=== PATIENT | female | born 1995 | race Caucasian/White ===

== ENCOUNTER 2016-10-21 14:51 | Emergency (ER) | payer OTHER ==
[2016-10-21 15:01] VITALS: BMI 23.8
[2016-10-21 15:03] VITALS: RESP 18; TEMP 99.1; O2SAT 98
[2016-10-21] MEDS ORDERED: Naproxen 550 mg Tab PO STA (16:02)
--- NOTE | 2016-10-21 16:29 | ED PDOC ---
Arrival/HPI - General Chief Complaint: Headache Time Seen by Provider: 10/21/16 15:06 Historian: Patient - History of Present Illness Narrative History of Present Illness (Text): 10/21/16 16:25 21 yo F c/o gradual intermittent stabbing like L occipital headache x 2 weeks. Reports nothing makes the pain better or worse and reports not taking any medications to alleviate the pain. Denies fever, chills, trauma, injury, N/V, URI symptoms, phonophobia, photophobia, h/o migraine headache, focal weakness or numbness. PMD Adolph Past Medical History - Provider Review Nursing Documentation Reviewed: Yes - Infectious Disease Hx of Infectious Diseases: None - Tetanus Immunization Tetanus Immunization: Unknown - Past Medical History Past Medical History: No Previous - Cardiac Hx Cardiac Disorders: No - Pulmonary Hx Respiratory Disorders: No - Neurological Hx Neurological Disorder: No - HEENT Hx HEENT Disorder: No - Renal Hx Renal Disorder: No - Endocrine/Metabolic Hx Endocrine Disorders: No - Hematological/Oncological Hx Blood Disorders: No - Integumentary Hx Dermatological Disorder: No - Musculoskeletal/Rheumatological Hx Musculoskeletal Disorders: No - Gastrointestinal Hx Gastrointestinal Disorders: No - Genitourinary/Gynecological Hx Genitourinary Disorders: Yes Other/Comment: right ovarian cyst - Psychiatric Hx Psychophysiologic Disorder: No Hx Substance Use: No - Past Surgical History Past Surgical History: No Previous - Surgical History Hx Section: Yes Hx Orthopedic Surgery: Yes (R wrist) - Anesthesia Hx Anesthesia: Yes Hx Anesthesia Reactions: No Hx Malignant Hyperthermia: No - Suicidal Assessment Feels Threatened In Home Enviroment: Yes Family/Social History - Physician Review Nursing Documentation Reviewed: Yes Family/Social History: No Known Family HX Smoking Status: Never Smoked Hx Alcohol Use: Yes Frequency of alcohol use: Socially Hx Substance Use: No Hx Substance Use Treatment: No Allergies/Home Meds Allergies/Adverse Reactions: Allergies No Known Allergies Allergy (Verified 01/08/14 17:02) Review of Systems - Review of Systems Constitutional: Normal. absent: Fatigue, Weight Change, Fevers Respiratory: Normal. absent: SOB, Cough, Sputum Cardiovascular: Normal. absent: Chest Pain, Palpitations, Edema Musculoskeletal: Normal. absent: Arthralgias, Back Pain, Neck Pain Skin: Normal. absent: Rash, Pruritis, Skin Lesions Neurological: Normal, Headache. absent: Dizziness, Focal Weakness Physical Exam Vital Signs Reviewed: Yes Vital Signs Temp Pulse Resp BP Pulse Ox 10/21/16 18:38 72 18 114/69 98 10/21/16 15:02 99.1 F 69 18 107/73 98 Temperature: Afebrile Blood Pressure: Normal Pulse: Regular Respiratory Rate: Normal Appearance: Positive for: Well-Appearing, Non-Toxic, Comfortable Pain Distress: None Mental Status: Positive for: Alert and Oriented X 3 - Systems Exam Head: Present: Atraumatic, Normocephalic Pupils: Present: PERRL Extroacular Muscles: Present: EOMI Conjunctiva: Present: Normal Mouth: Present: Moist Mucous Membranes Pharnyx: Present: Normal. No: ERYTHEMA Neck: Present: Normal Range of Motion. No: Meningeal Signs, MIDLINE TENDERNESS Respiratory/Chest: Present: Clear to Auscultation, Good Air Exchange. No: Respiratory Distress, Accessory Muscle Use, Wheezes, Rales, Rhonchi Cardiovascular: Present: Regular Rate and Rhythm, Normal S1, S2. No: Murmurs Upper Extremity: Present: Normal Inspection, Normal ROM. No: Edema Lower Extremity: Present: Normal Inspection, Normal ROM. No: Edema Neurological: Present: GCS=15, CN II-XII Intact, Speech Normal, Motor Func Grossly Intact, Normal Sensory Function, Normal Cerebellar Funct, Gait Normal Skin: Present: Warm, Dry, Normal Color. No: Rashes Psychiatric: Present: Alert, Oriented x 3 Medical Decision Making ED Course and Treatment: 10/21/16 16:29 21 yo F c/o gradual intermittent stabbing like L occipital headache x 2 weeks. Based on history and exam, likely migraine headache, to consider cluster and tension headache. Plan: - [facility] [place] - Naprosyn / Reglan - CT head w/o contrast 10/21/16 18:30 On re-evaluation, pt is sitting comfortably in bed in no acute distress. Reports improvement of her headache. CT head still pending, however the pt is refusing head CT at this time. Pt wants to leave AMA. Benefits of obtaining the CT were explained to the pt. Risk of refusing the CT were also explained. Pt informed that the risk of leaving AMA include missing any underlying condition, worsening of condition, disability and . Pt understands the risk of leaving AMA without the head CT and still wants to leave. Pt given Rx for her symptoms. Advised to f/u with her pmd for re- evaluation. Otherwise to return to the ER at any time for any new or worsening symptoms, or if she changes her mind. - Medication Orders Current Medication Orders: Discontinued Medications Metoclopramide HCl (Reglan) 10 mg PO STAT STA Stop: 10/21/16 16:03 Last Admin: 10/21/16 16:41 Dose: 10 mg Naproxen (Anaprox Ds) 550 mg PO ONCE STA Stop: 10/21/16 16:03 Last Admin: 10/21/16 16:41 Dose: 550 mg - PA / HOME BASED ASSISTANT / Resident Statement / has reviewed & agrees with the documentation as recorded. Disposition/Present on Arrival - Present on Arrival Any Indicators Present on Arrival: No History of DVT/PE: No History of Uncontrolled Diabetes: No Urinary Catheter: No History of Decub. Ulcer: No History Surgical Site Infection Following: None - Disposition Have Diagnosis and Disposition been Completed?: Yes Diagnosis: Headache Disposition: AGAINST MEDICAL ADVICE Disposition Time: 18:33 Patient Plan: Other (Pt is wishing to leave AMA) Condition: STABLE Discharge Instructions (ExitCare): Acute Headache (ED), Against Medical Advice (ED) Print Language: PORTUGUESE Additional Instructions: Follow up with your pmd in 2 days for re-evaluation. Take medication as prescribed. Return to the ER at any time for any new or worsening symptoms. Prescriptions: Metoclopramide HCl [Reglan] 10 mg PO QID PRN #20 tablet PRN Reason: Headache Naproxen 500 mg PO BID PRN #30 tab PRN Reason: Headache Referrals: Marialuisa Deras MD [Primary Care Provider] - Follow up with primary Forms: WORK NOTE
[2016-10-21 18:39] VITALS: BP 114/69; PULSE 72
== END 2016-10-21 18:44 | disposition left against medical advice (07) ==
LOC: ED 14:51
DX: R51 Headache (principal)

== ENCOUNTER 2018-01-28 21:05 | Inpatient (IN) | payer MEDICAID, OTHER ==
[2018-01-28] MEDS ORDERED: Sodium Chloride 0.9% 1,000 ML IV STA (21:34)
--- NOTE | 2018-01-28 21:39 | ED PDOC ---
Addendum entered and electronically signed by Jefe Tejada PA-C 01/30/18 11:34: Addendum Addendum: 01/30/18 11:33 Official chest xray show rt. upper lobe patchy pneumonia, Dr. Sheppard is seeing the patient and already awared of the result, broad spectrum treatment on azithromycin and rocephine Original Note: Arrival/HPI - General Historian: Patient, Parent, Family - History of Present Illness Narrative History of Present Illness (Text): 01/28/18 21:36 22 year old female no significant pmh,nkda, biba with the mother for syncope. Pt. stated that she pass out in the bathroom this evening. Pt. stated that she has been sick with high fever/bodyache/cough and headache x 2-3 days, no recent traveling, no abdominal pain, stated that she went to use the bathroom this evening and found her self on the bathroom ground, no neck/extremity/abdominal/pelvic pain, no night sweat, no change in vision, no numbness or tinging, no other medical or psychological complaints. <Jefe Tejada - Last Filed: 01/29/18 01:10> <Rk Zamudio - Last Filed: 01/29/18 06:24> - General Chief Complaint: Flu-like Symptoms Time Seen by Provider: 01/28/18 21:27 Past Medical History - Provider Review Nursing Documentation Reviewed: Yes - Infectious Disease Hx of Infectious Diseases: None - Tetanus Immunization Tetanus Immunization: Unknown - Past Medical History Past Medical History: No Previous - Cardiac Hx Cardiac Disorders: No - Pulmonary Hx Respiratory Disorders: No - Neurological Hx Neurological Disorder: No - HEENT Hx HEENT Disorder: No - Renal Hx Renal Disorder: No - Endocrine/Metabolic Hx Endocrine Disorders: No - Hematological/Oncological Hx Blood Disorders: No - Integumentary Hx Dermatological Disorder: No - Musculoskeletal/Rheumatological Hx Musculoskeletal Disorders: No - Gastrointestinal Hx Gastrointestinal Disorders: No - Genitourinary/Gynecological Hx Genitourinary Disorders: Yes Other/Comment: right ovarian cyst - Psychiatric Hx Psychophysiologic Disorder: No Hx Substance Use: No - Past Surgical History Past Surgical History: No Previous - Surgical History Hx Section: Yes Hx Orthopedic Surgery: Yes (R wrist) - Anesthesia Hx Anesthesia: Yes Hx Anesthesia Reactions: No Hx Malignant Hyperthermia: No - Suicidal Assessment Feels Threatened In Home Enviroment: Yes <Jefe eTjada Cassie - Last Filed: 01/29/18 01:10> Family/Social History - Physician Review Nursing Documentation Reviewed: Yes Family/Social History: Unknown Family HX Smoking Status: Never Smoked Hx Alcohol Use: Yes Hx Substance Use: No Hx Substance Use Treatment: No <Jefe Tejada Cassie - Last Filed: 01/29/18 01:10> Allergies/Home Meds <Jefe Tejada Cassie - Last Filed: 01/29/18 01:10> <Rk Zamudio - Last Filed: 01/29/18 06:24> Allergies/Adverse Reactions: Allergies No Known Allergies Allergy (Verified 01/28/18 21:15) Home Medications: Home Meds Medication Instructions Recorded Confirmed RX: No Known Home Med 01/28/18 01/28/18 Review of Systems - Review of Systems Constitutional: Fatigue, Fevers Eyes: absent: Vision Changes ENT: Rhinorrhea. absent: Hearing Changes Respiratory: Cough, Sputum. absent: SOB, Wheezing Cardiovascular: absent: Chest Pain, Palpitations Gastrointestinal: absent: Abdominal Pain, Diarrhea, Nausea, Vomiting Genitourinary Female: absent: Dysuria, Frequency, Vaginal Discharge Musculoskeletal: Myalgias. absent: Arthralgias, Neck Pain, Joint Swelling Skin: absent: Rash, Pruritis Neurological: Headache. absent: Dizziness Psychiatric: absent: Anxiety, Depression, Suicidal Ideation <Jefe Tejada - Last Filed: 01/29/18 01:10> Physical Exam Vital Signs Reviewed: Yes Vital Signs Temp Pulse Resp BP Pulse Ox 01/28/18 21:11 103.1 F H 117 H 18 124/80 98 Temperature: Febrile Blood Pressure: Normal Pulse: Tachycardic Respiratory Rate: Normal Appearance: Positive for: Ill-Appearing Pain Distress: Moderate Mental Status: Positive for: Alert and Oriented X 3 - Systems Exam Head: Present: Atraumatic, Normocephalic, Other (facial: no bony tenderness or swelling, no laceration/abrasion, no signs of trauma. ). No: Tenderness, Contusion, Swelling, Ecchymosis, Abrasion, Laceration Pupils: Present: PERRL Extroacular Muscles: Present: EOMI Conjunctiva: Present: Normal Ears: Present: NORMAL TM, Normal Canal Mouth: Present: Moist Mucous Membranes Pharnyx: Present: Normal. No: ERYTHEMA, EXUDATE, TONSILS ENLARGED Nose (External): Present: Atraumatic. No: Abrasion, Contusion, Laceration Nose (Internal): Present: Normal Inspection, No Active Bleeding. No: Rhinorrhea, Septal Hematoma, Epistaxis Neck: Present: Normal Range of Motion, Trachea Midline. No: Meningeal Signs, MIDLINE TENDERNESS, Paraspinal Tenderness, Lymphadenopathy Respiratory/Chest: Present: Decreased Breath Sounds, Rhonchi (bilateral), Tender to Palpation. No: Respiratory Distress, Accessory Muscle Use, Wheezes, Rales, Retracting, Tachypneic Cardiovascular: Present: Regular Rate and Rhythm, Normal S1, S2. No: Murmurs Abdomen: No: Tenderness, Distention, Peritoneal Signs, Rebound, Guarding Back: Present: Normal Inspection. No: CVA Tenderness, Midline Tenderness, Paraspinal Tenderness, Pain with Leg Raise, Decubitus Ulcer Upper Extremity: Present: Normal Inspection. No: Cyanosis, Edema Lower Extremity: Present: Normal Inspection, Normal ROM, Neurovascularly Intact, Capillary Refill < 2 s. No: Edema, CALF TENDERNESS, Tonya's Sign, Tenderness, Swelling, Deformity Neurological: Present: GCS=15, CN II-XII Intact, Speech Normal, Motor Func Grossly Intact, Normal Cerebellar Funct, Gait Normal, Memory Normal Skin: Present: Warm, Dry, Normal Color. No: Rashes Lymphatic: No: Cervical Adenopathy Psychiatric: Present: Alert, Oriented x 3, Normal Insight, Normal Concentration <Jefe Tejada - Last Filed: 01/29/18 01:10> Vital Signs Temp Pulse Resp BP Pulse Ox 01/28/18 23:40 99.8 F H 96 H 17 118/66 97 01/28/18 22:37 103.1 F H 01/28/18 21:11 103.1 F H 117 H 18 124/80 98 <Rk Zamudio - Last Filed: 01/29/18 06:24> Medical Decision Making ED Course and Treatment: 01/28/18 21:40 -labs/vbg -cxr -CT head -ekg -IVF/tylenol/toradol (if CT head is negative and urine hcg is negative) -Observe and reassess 01/29/18 00:58 -Urine hcg is negative -EKG: ST @ 103 BPM, no ST elevation or depression, no T wave inversion -CT head show essentially unremarkable CT scan of the brain. -Chest X-ray ER wet read: no active disease -Labs show no acute findings -Rapid flu is negative but clinical suspicious is high, tamiflu ordered. -MG is negative -Urinalysis show +UTI, IV rocephine ordered. 01/29/18 01:10 -Pt. doesn't feel well, still sick looking, negative kernig and brudzinski signs, discussed with the patient to observe her over night since she has syncope. Pt. agreed to be admitted. -Paging the admitting team. - RAD Interpretation Narrative RAD Interpretations (Text): CT Head: BRAIN Otherwise, essentially unremarkable CT scan of the brain. VENTRICLES: No hydrocephalus. ORBITS: The orbits are unremarkable. SINUSES AND MASTOIDS: The paranasal sinuses and mastoid air cells are clear. BONES: No fracture. SOFT TISSUES: Unremarkable. MISCELLANEOUS: Study is somewhat limited by motion artifact. IMPRESSION: 1. Study is somewhat limited by motion artifact. 2. Otherwise, essentially unremarkable CT scan of the brain. Electronically signed on Jan 28, 2018 11:51:01 PM EDT by: Cornelius Potts M.D., BERENICE Certified By ABR & CBCCT Fellowship Trained MRI and CT Specialist Radiology Orders: 01/28/18 21:34 HEAD W/O CONTRAST [CT] Stat CHEST TWO VIEWS (PA/LAT) [RAD] Stat CT Head: COMPARISON: Comparison is made to study performed November 22, 2014 FINDINGS: BRAIN Otherwise, essentially unremarkable CT scan of the brain. VENTRICLES: No hydrocephalus. ORBITS: The orbits are unremarkable. SINUSES AND MASTOIDS: The paranasal sinuses and mastoid air cells are clear. BONES: No fracture. SOFT TISSUES: Unremarkable. MISCELLANEOUS: Study is somewhat limited by motion artifact. IMPRESSION: 1. Study is somewhat limited by motion artifact. 2. Otherwise, essentially unremarkable CT scan of the brain. Electronically signed on Jan 28, 2018 11:51:01 PM EDT by: Cornelius Potts M.D., BERENICE Certified By ABR & CBCCT Fellowship Trained MRI and CT Specialist Chest xray: Corporate Logistics Manager: Radiologist - EKG Interpretation EKG Interpretation (Text): 01/29/18 00:55 ST @ 103 BPM, no ST elevation or depression, no T wave inversion Interpreted by ED Physician: Yes Type: 12 lead EKG - Medication Orders Current Medication Orders: Acetaminophen (Tylenol 325mg Tab) 650 mg PO STAT STA Stop: 01/28/18 21:35 Sodium Chloride (Sodium Chloride 0.9%) 1,000 mls @ 999 mls/hr IV .Q1H1M STA Stop: 01/28/18 22:34 Ketorolac Tromethamine (Toradol) 30 mg IVP STAT STA Stop: 01/28/18 21:35 <Jefe Tejada Q - Last Filed: 01/29/18 01:10> - Lab Interpretations Lab Results: 01/28/18 23:02 01/28/18 23:02 Lab Results 01/28/18 23:02: Urine Color Yellow, Urine Appearance Sl cloudy, Urine pH 6.5, Ur Specific [place] 1.015, Urine Protein Trace H, Urine Glucose (UA) Negative, Urine Ketones Negative, Urine Blood Large H, Urine Nitrate Negative, Urine Bilirubin Negative, Urine Urobilinogen 0.2, Ur Leukocyte Esterase Small H, Urine RBC 2 - 5, Urine WBC 5 - 10, Ur Epithelial Cells 6 - 8, Amorphous Sediment Few, Urine Bacteria Small 01/28/18 23:02: Sodium 138, Chloride 101, Potassium 3.9, Carbon Dioxide 26, Anion Gap 14, BUN 10, Creatinine 0.7, Est GFR ( Amer) > 60, Est GFR (Non- Af Amer) > 60, Random Glucose 107, Calcium 8.9, Magnesium 2.0, Total Bilirubin 0.4, AST 28, ALT 25, Alkaline Phosphatase 68, Total Protein 7.8, Albumin 4.3, Globulin 3.5, Albumin/Globulin Ratio 1.2 01/28/18 23:02: WBC 8.1, RBC 4.45, Hgb 13.1, Hct 38.2, MCV 85.8, MCH 29.4, MCHC 34.3, RDW 11.9, Plt Count 163, MPV 10.0, Gran % 67.7, Lymph % (Auto) 22.6, [place] % (Auto) 9.5 H, Eos % (Auto) 0.1 L, Baso % (Auto) 0.1, Gran # 5.46, Lymph # (Auto) 1.8, [place] # (Auto) 0.8 H, Eos # (Auto) 0.0, Baso # (Auto) 0.01 01/28/18 23:00: pO2 33, VBG pH 7.38, VBG pCO2 48.0, VBG HCO3 28.4 H, VBG Total CO2 29.9 H, VBG O2 Sat (Calc) 68.1 H, VBG Base Excess 2.5 H, VBG Potassium 3.9, Sodium 136.0, Chloride 101.0, Glucose 104, Lactate 0.8, FiO2 21.0, Venous Blood Potassium 3.9 01/28/18 21:15: Influenza Typ A,B (EIA) Negative for flu a/b - RAD Interpretation Radiology Orders: 01/28/18 21:34 HEAD W/O CONTRAST [CT] Stat CHEST TWO VIEWS (PA/LAT) [RAD] Stat - Medication Orders Current Medication Orders: Sodium Chloride (Sodium Chloride 0.9%) 1,000 mls @ 100 mls/hr IV .Q10H [place] Discontinued Medications Acetaminophen (Tylenol 325mg Tab) 650 mg PO STAT STA Stop: 01/28/18 21:35 Last Admin: 01/28/18 22:37 Dose: 650 mg MAR Pain/Vitals Document 01/28/18 22:37 OCS (Rec: 01/28/18 22:37 [facility] Vitals Temperature (97.6 F-99.6 F) 103.1 F Temperature Source Oral Sodium Chloride (Sodium Chloride 0.9%) 1,000 mls @ 999 mls/hr IV .Q1H1M STA Stop: 01/28/18 22:34 Last Admin: 01/28/18 22:36 Dose: 999 mls/hr eMAR Start Stop Document 01/28/18 22:36 OCS (Rec: 01/28/18 22:37 [facility] Intravenous Solution Start Date 01/28/18 Start Time 22:37 End Date 10/31/18 End time 23:38 Total Infusion Time 61 <Rk Zamudio - Last Filed: 01/29/18 06:24> - PA / AIR QUALITY SPECIALIST / Resident Statement AMANDA has reviewed & agrees with the documentation as recorded. <Jefe Tejada - Last Filed: 01/29/18 01:10> - PA / AIR QUALITY SPECIALIST / Resident Statement AMANDA has reviewed & agrees with the documentation as recorded. AMANDA has examined the patient and agrees with the treatment plan. <Rk Zamudio - Last Filed: 01/29/18 06:24> Disposition/Present on Arrival - Present on Arrival Any Indicators Present on Arrival: No History of DVT/PE: No History of Uncontrolled Diabetes: No Urinary Catheter: No History of Decub. Ulcer: No History Surgical Site Infection Following: None - Disposition Have Diagnosis and Disposition been Completed?: Yes Disposition Time: 01:11 Patient Plan: Admission, Observation, Telemetry <Jefe Tejada - Last Filed: 01/29/18 01:10> <Rk Zamudio - Last Filed: 01/29/18 06:24> - Disposition Diagnosis: UTI (urinary tract infection), Syncope Disposition: HOSPITALIZED Patient Problems: Current Active Problems Problem Status Onset Syncope Acute UTI (urinary tract infection) Acute Condition: STABLE
[2018-01-28 23:05] LABS: VENOUS BLOOD GAS BASE EXCESS 2.5 mmol/L (0.0-2.0); VENOUS BLOOD GAS PO2 33 mm/Hg (30-55); VENOUS BLOOD PH 7.38 (7.32-7.43)
[2018-01-28 23:19] LABS: ALB/GLOB RATIO 1.2 (1.1-1.8); ALBUMIN 4.3 g/dL (3.0-4.8); ALT/SGPT 25 U/L (7-56); AST/SGOT 28 U/L (14-36); BLOOD UREA NITROGEN 10 mg/dL (7-21); CALCIUM 8.9 mg/dL (8.4-10.5); GFR NON-AFRICAN AMERICAN > 60
[2018-01-28 23:20] LABS: BASO # 0.01 K/mm3 (0.0-2.0); BASO % 0.1 % (0.0-3.0); EOS % 0.1 % (1.5-5.0); GRAN # 5.46 (1.4-6.5); GRAN % 67.7 % (50.0-68.0); HEMOGLOBIN 13.1 g/dL (12.0-16.0); LYMPH # 1.8 (1.2-3.4); LYMPH % 22.6 % (22.0-35.0); MEAN CELL VOLUME 85.8 fl (80.0-105.0); MEAN CORPUSCULAR HEMOGLOBIN 29.4 pg (25.0-35.0); MEAN CORPUSCULAR HGB CONC 34.3 g/dl (31.0-37.0); MONO # 0.8 (0.1-0.6); MONO % 9.5 % (1.0-6.0); RBC 4.45 10^6/uL (3.5-6.1); RED CELL DISTRIBUTION WIDTH 11.9 % (11.5-14.5); WHITE BLOOD COUNT 8.1 10^3/uL (4.5-11.0)
[2018-01-28 23:21] LABS: PH,URINE 6.5 (4.7-8.0); URINE BILIRUBIN NEGATIVE (NEGATIVE); URINE BLOOD LARGE (NEGATIVE); URINE GLUCOSE (UA) NEGATIVE (NEGATIVE); URINE LEUKOCYTE ESTERASE SMALL Leu/uL (NEGATIVE); URINE PROTEIN TRACE mg/dL (<30 mg/dL); URINE UROBILINOGEN 0.2 E.U./dL (<1 E.U./dL)
[2018-01-28 23:22] LABS: URINE APPEARANCE SL CLOUDY (CLEAR); URINE COLOR YELLOW (YELLOW)
[2018-01-28 23:49] LABS: URINE AMORPHOUS SEDIMENT FEW; URINE BACTERIA SMALL (NEG)
[2018-01-29] MEDS: Sodium Chloride 0.9% 1,000 ML IV SCH (00:47)
[2018-01-29] MEDS ORDERED: cefTRIAXone 1 gm 1 GM/100 ML BAG IVPB STA (00:54)
--- NOTE | 2018-01-29 05:46 | CP.PCM.HP ---
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 Patient reported that over the past 2-3 days she has been having general malaise, fever, cough, body aches n/v w/ 2 episodes NBNB vomitus, and decreased PO intake. She denies any sick contact, or recent travel. Patient does report decreased PO intake w/ Of note patient reported chronic L sided shoulder pain w/ chronic L sided neck pain. Denies any headache, visual disturbances, photophobia. She did report that she passed out prior to arrival. Reported feeling light headed and dizzy prior to passing out; lost consciousness for what she reports as minutes; unwitnessed; reports she was unconscious for "less than a few minutes"; Denies any trauma to her head. Denies any seizure like symptoms. Denies UTI / Dysuria / Burning upon urination or discharge. Upon presentation to ED her TMax was 103.1. Remainder of 12 system ROS is negative FDLMP: now PMD: [place] PMH: None PSH: CSection; Wrist surgery (ortho) Pharmacy [facility] Present on Admission - Present on Admission Any Indicators Present on Admission: No Review of Systems - Review of Systems All systems: reviewed and no additional remarkable complaints except Review of Systems: as per HPI Past Patient History - Infectious Disease Hx of Infectious Diseases: None - Tetanus Immunizations Tetanus Immunization: Unknown - Past Social History Smoking Status: Never Smoked - CARDIAC Hx Cardiac Disorders: No Hx Angina: No Hx Cardia Arrhythmia: No Hx Circulatory Problems: No Hx Congestive Heart Failure: No Hx Heart Murmur: No Hx Heart Transplant: No Hx Hypercholesterolemia: No Hx Hypertension: No Hx Internal Defibrillator: No Hx Mitral Valve Prolapse: No Hx Pacemaker: No Hx Peripheral Edema: No Hx Peripheral Vascular Disease: No - PULMONARY Hx Respiratory Disorders: No Hx Asthma: No Hx Bronchitis: No Hx Chronic Obstructive Pulmonary Disease (COPD): No Hx Emphysema: No Hx Pneumonia: No Hx Respiratory Aspiration: No Hx Respiratory Tract Infection: No Hx Sleep Apnea: No Hx Tuberculosis: No - NEUROLOGICAL Hx Neurological Disorder: No Hx Alzheimer's Disease: No HX Cerebrovascular Accident: No Hx Dementia: No Hx Dizziness: No Hx Meningitis: No Hx Migraine: No Hx Parkinson's Disease: No Hx Seizures: No Hx Transient Ischemic Attacks (TIA): No - HEENT Hx HEENT Problems: No Hx Blind: No Hx Cataracts: No Hx Deafness: No Hx Difficulty Chewing: No Hx Epistaxis: No Hx Glaucoma: No Hx Macular Degeneration: No - RENAL Hx Chronic Kidney Disease: No Hx Dialysis: No Hx Kidney Stones: No Hx Neurogenic Bladder: No Hx Pyelonephritis: No Hx Renal (Kidney) Cancer: No Hx Renal Failure: No - ENDOCRINE/METABOLIC Hx Endocrine Disorders: No Hx Adrenal Cancer: No Hx Diabetes Insipidus: No Hx Diabetes Mellitus Type 1: No Hx Diabetes Mellitus Type 2: No Hx Hyperthyroidism: No Hx Hypothyroidism: No Hx Systemic Lupus Erythematosus: No - HEMATOLOGICAL/ONCOLOGICAL Hx Blood Disorders: No Hx AIDS: No Hx Anemia: No Hx Cancer: No Hx Chemotherapy: No Hx Cirrhosis: No Hx Hemophilia: No Hx Hepatitis A: No Hx Hepatitis B: No Hx Hepatitis C: No Hx Human Immunodeficiency Virus (HIV): No Hx Metastesis: No Hx Shingles: No Hx Sickle Cell Disease: No Hx Unexplained Bleeding: No - INTEGUMENTARY Hx Dermatological Problems: No Hx Basil Cell: No Hx Eczema: No Hx Melanoma: No Hx Psoriasis: No Hx Squamous Cell: No - MUSCULOSKELETAL/RHEUMATOLOGICAL Hx Musculoskeletal Disorders: No Hx Arthritis: No Hx Back Pain: No Hx Degenerative Joint Disease: No Hx Falls: No Hx Fractures: No Hx Gout: No Hx Herniated Disk: No Hx Myasthenia Gravis: No Hx Osteoarthritis: No Hx Osteomyelitis: No Hx Osteoporosis: No Hx Rhabdomyolysis: No Hx Spinal Stenosis: No Hx Unsteady Gait: No - GASTROINTESTINAL Hx Gastrointestinal Disorders: No Hx Colostomy: No Hx Crohn's Disease: No Hx Diverticulitis: No Hx Gall Bladder Disease: No Hx Gastroesophageal Reflux: No Hx Ileostomy: No Hx Liver Failure: No Hx Pancreatitis: No HX Swallowing Problems: No Hx Ulcer: No - GENITOURINARY/GYNECOLOGICAL Hx Genitourinary Disorders: No Hx Hematuria: No Hx Incontinence: No Hx Sexually Transmitted Disorders: No Hx Urinary Tract Infection: Yes - PSYCHIATRIC Hx Psychophysiologic Disorder: No Hx Anxiety: No Hx Bipolar Disorder: No Hx Depression: No Hx Emotional Abuse: No Hx Hallucinations: No Hx Panic Symptoms: No Hx Paranoia: No Hx Post Traumatic Stress Disorder: No Hx Psychosis: No Hx Physical Abuse: No Hx Schizophrenia: No Hx Sexual Abuse: No Hx Substance Use: No - SURGICAL HISTORY Hx Surgeries: Yes (C.SECTION) Hx Amputation: No Hx Appendectomy: No Hx Cardiac Catheterization: No Hx Cholecystectomy: No Hx Coronary Stent: No Hx Gastric Bypass Surgery: No Hx Hysterectomy: No Hx Joint Replacement: No Hx Kidney Transplant: No Hx Liver Transplant: No Hx Mastectomy: No Hx Musculoskeletal Surgery: No Hx Open Heart Surgery: No Hx Orthopedic Surgery: No Hx Splenectomy: No Hx Valve Replacement: No - ANESTHESIA Hx Anesthesia: Yes Hx Anesthesia Reactions: No Hx Malignant Hyperthermia: No Meds Allergies/Adverse Reactions: Allergies Allergy/AdvReac Type Severity Reaction Status Date / Time No Known Allergies Allergy Verified 01/28/18 21:15 Physical Exam - Constitutional Appears: Well, No Acute Distress - Head Exam Head Exam: ATRAUMATIC, NORMAL INSPECTION, NORMOCEPHALIC - Eye Exam Eye Exam: EOMI, Normal appearance, PERRL. absent: Scleral icterus - ENT Exam ENT Exam: Mucous Membranes Moist, Normal Exam - Neck Exam Additional comments: No mengningmus No tenderness to palpation No Cervical lymphadenopathy No Nuchal rigidty - Respiratory Exam Respiratory Exam: Clear to Auscultation Bilateral, NORMAL BREATHING PATTERN. absent: Rales, Rhonchi, Wheezes - Cardiovascular Exam Cardiovascular Exam: RRR, +S1, +S2. absent: Systolic Murmur - GI/Abdominal Exam GI & Abdominal Exam: Normal Bowel Sounds, Soft. absent: Tenderness - Extremities Exam Extremities exam: Positive for: pedal pulses present. Negative for: pedal edema Additional comments: Left shoulder w/ no palpation however some spasticity in L shoulder and L neck - Back Exam Back exam: absent: CVA tenderness (L), CVA tenderness (R) - Neurological Exam Neurological exam: CN II-XII Intact, Oriented x3 - Psychiatric Exam Psychiatric exam: Normal Affect, Normal Mood - Skin Skin Exam: Dry, Intact, Normal Color, Warm Results - Vital Signs Recent Vital Signs: Last Vital Signs Temp 99.5 F 01/29/18 03:23 Pulse 85 01/29/18 03:23 Resp 20 01/29/18 03:23 BP 118/78 01/29/18 03:23 Pulse Ox 96 01/29/18 03:23 - Labs Result Diagrams: 01/28/18 23:02 01/28/18 23:02 Labs: Laboratory Results - last 24 hr 01/28/18 01/28/18 01/28/18 21:15 23:00 23:02 WBC 8.1 RBC 4.45 Hgb 13.1 Hct 38.2 MCV 85.8 MCH 29.4 MCHC 34.3 RDW 11.9 Plt Count 163 MPV 10.0 Gran % 67.7 Lymph % (Auto) 22.6 Over[place] % (Auto) 9.5 H Eos % (Auto) 0.1 L Baso % (Auto) 0.1 Gran # 5.46 Lymph # (Auto) 1.8 Overton # (Auto) 0.8 H Eos # (Auto) 0.0 Baso # (Auto) 0.01 pO2 33 VBG pH 7.38 VBG pCO2 48.0 VBG HCO3 28.4 H VBG Total CO2 29.9 H VBG O2 Sat (Calc) 68.1 H VBG Base Excess 2.5 H VBG Potassium 3.9 Sodium 136.0 Chloride 101.0 Glucose 104 Lactate 0.8 FiO2 21.0 Potassium Carbon Dioxide Anion Gap BUN Creatinine Est GFR ( Amer) Est GFR (Non-Af Amer) Random Glucose Calcium Magnesium Total Bilirubin AST ALT Alkaline Phosphatase Total Protein Albumin Globulin Albumin/Globulin Ratio Venous Blood Potassium 3.9 Urine Color Urine Appearance Urine pH Ur Specific [place] Urine Protein Urine Glucose (UA) Urine Ketones Urine Blood Urine Nitrate Urine Bilirubin Urine Urobilinogen Ur Leukocyte Esterase Urine RBC Urine WBC Ur Epithelial Cells Amorphous Sediment Urine Bacteria Influenza Typ A,B (EIA) Negative for flu a/b 01/28/18 01/28/18 23:02 23:02 WBC RBC Hgb Hct MCV MCH MCHC RDW Plt Count MPV Gran % Lymph % (Auto) [place] % (Auto) Eos % (Auto) Baso % (Auto) Gran # Lymph # (Auto) [place] # (Auto) Eos # (Auto) Baso # (Auto) pO2 VBG pH VBG pCO2 VBG HCO3 VBG Total CO2 VBG O2 Sat (Calc) VBG Base Excess VBG Potassium Sodium 138 Chloride 101 Glucose Lactate FiO2 Potassium 3.9 Carbon Dioxide 26 Anion Gap 14 BUN 10 Creatinine 0.7 Est GFR ( Amer) > 60 Est GFR (Non-Af Amer) > 60 Random Glucose 107 Calcium 8.9 Magnesium 2.0 Total Bilirubin 0.4 AST 28 ALT 25 Alkaline Phosphatase 68 Total Protein 7.8 Albumin 4.3 Globulin 3.5 Albumin/Globulin Ratio 1.2 Venous Blood Potassium Urine Color Yellow Urine Appearance Sl cloudy Urine pH 6.5 Ur Specific [place] 1.015 Urine Protein Trace H Urine Glucose (UA) Negative Urine Ketones Negative Urine Blood Large H Urine Nitrate Negative Urine Bilirubin Negative Urine Urobilinogen 0.2 Ur Leukocyte Esterase Small H Urine RBC 2 - 5 Urine WBC 5 - 10 Ur Epithelial Cells 6 - 8 Amorphous Sediment Few Urine Bacteria Small Influenza Typ A,B (EIA) Assessment & Plan - Assessment and Plan (Free Text) Assessment: 22F w/ no significant medical history presnted to [facility] on 01/29 w/ c/o fever, cough, and lightheadedness. Patient reported that over the past 2-3 days she has been having general malaise, fever, cough, body aches n/v w/ 2 episodes NBNB vomitus, and decreased PO Plan: Viral URI Flu swab negative Cw Fluids Tylenol PRN fever Xray negative prelim read; pending official read Procal pending Syncope: Most likely 2/2 hypovolemia in the setting of illness/ high fevers and decreased PO intake. Or vasogal. Less likely cardiac origin given age and EKG EKG normal sinus Electrolytes wnl Will give IVF; CT Head negative UTI: Given Fevers and small bacteruria, and pyuria C/w Rocephin Shoulder/ Neck Pain Most likely MSK in nature RICE Can advance to flexeril if necessary Patient was seen examined discussed w/ attending Dr. 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 - Date & Time Date: 01/29/18 Time: 06:04 <Homero Sarah - Last Filed: 01/29/18 06:58> Results - Vital Signs Recent Vital Signs: Last Vital Signs Temp 102.9 F H 01/29/18 06:22 Pulse 84 01/29/18 05:33 Resp 20 01/29/18 03:23 BP 118/78 01/29/18 03:23 Pulse Ox 96 01/29/18 03:23 - Labs Result Diagrams: 01/28/18 23:02 01/28/18 23:02 Labs: Laboratory Results - last 24 hr 01/28/18 01/28/18 01/28/18 21:15 23:00 23:02 WBC 8.1 RBC 4.45 Hgb 13.1 Hct 38.2 MCV 85.8 MCH 29.4 MCHC 34.3 RDW 11.9 Plt Count 163 MPV 10.0 Gran % 67.7 Lymph % (Auto) 22.6 Over[place] % (Auto) 9.5 H Eos % (Auto) 0.1 L Baso % (Auto) 0.1 Gran # 5.46 Lymph # (Auto) 1.8 [place]ton # (Auto) 0.8 H Eos # (Auto) 0.0 Baso # (Auto) 0.01 pO2 33 VBG pH 7.38 VBG pCO2 48.0 VBG HCO3 28.4 H VBG Total CO2 29.9 H VBG O2 Sat (Calc) 68.1 H VBG Base Excess 2.5 H VBG Potassium 3.9 Sodium 136.0 Chloride 101.0 Glucose 104 Lactate 0.8 FiO2 21.0 Potassium Carbon Dioxide Anion Gap BUN Creatinine Est GFR ( Amer) Est GFR (Non-Af Amer) Random Glucose Calcium Magnesium Total Bilirubin AST ALT Alkaline Phosphatase Total Protein Albumin Globulin Albumin/Globulin Ratio Venous Blood Potassium 3.9 Urine Color Urine Appearance Urine pH Ur Specific [place] Urine Protein Urine Glucose (UA) Urine Ketones Urine Blood Urine Nitrate Urine Bilirubin Urine Urobilinogen Ur Leukocyte Esterase Urine RBC Urine WBC Ur Epithelial Cells Amorphous Sediment Urine Bacteria Influenza Typ A,B (EIA) Negative for flu a/b 01/28/18 01/28/18 23:02 23:02 WBC RBC Hgb Hct MCV MCH MCHC RDW Plt Count MPV Gran % Lymph % (Auto) [place] % (Auto) Eos % (Auto) Baso % (Auto) Gran # Lymph # (Auto) [place] # (Auto) Eos # (Auto) Baso # (Auto) pO2 VBG pH VBG pCO2 VBG HCO3 VBG Total CO2 VBG O2 Sat (Calc) VBG Base Excess VBG Potassium Sodium 138 Chloride 101 Glucose Lactate FiO2 Potassium 3.9 Carbon Dioxide 26 Anion Gap 14 BUN 10 Creatinine 0.7 Est GFR ( Amer) > 60 Est GFR (Non-Af Amer) > 60 Random Glucose 107 Calcium 8.9 Magnesium 2.0 Total Bilirubin 0.4 AST 28 ALT 25 Alkaline Phosphatase 68 Total Protein 7.8 Albumin 4.3 Globulin 3.5 Albumin/Globulin Ratio 1.2 Venous Blood Potassium Urine Color Yellow Urine Appearance Sl cloudy Urine pH 6.5 Ur Specific [place] 1.015 Urine Protein Trace H Urine Glucose (UA) Negative Urine Ketones Negative Urine Blood Large H Urine Nitrate Negative Urine Bilirubin Negative Urine Urobilinogen 0.2 Ur Leukocyte Esterase Small H Urine RBC 2 - 5 Urine WBC 5 - 10 Ur Epithelial Cells 6 - 8 Amorphous Sediment Few Urine Bacteria Small Influenza Typ A,B (EIA) Attending/Attestation - Attestation I have personally seen and examined this patient.: Yes I have fully participated in the care of the patient.: Yes I have reviewed all pertinent clinical information: Yes Notes (Text): 01/29/18 06:58 Patient was seen when he was in the ER. Medical record was reviewed. Agree with history , physical examination, assessment and plan.
--- NOTE | 2018-01-29 07:09 | RAD ---
Date of service: 01/28/2018 HISTORY: fever/pneumonia? COMPARISON: No prior. TECHNIQUE: Chest PA and lateral FINDINGS: LUNGS: There is a patchy infiltrate in the right upper lobe consistent with pneumonia. There is also peribronchial thickening in this region. PLEURA: No significant pleural effusion identified. No pneumothorax apparent. CARDIOVASCULAR: No aortic atherosclerotic calcification present. Normal cardiac size. No pulmonary vascular congestion. OSSEOUS STRUCTURES: No significant abnormalities. VISUALIZED UPPER ABDOMEN: Normal. OTHER FINDINGS: None. IMPRESSION: There is a patchy infiltrate in the right upper lobe consistent with pneumonia. There is also peribronchial thickening in this region.
--- NOTE | 2018-01-29 08:09 | CT ---
Date of service: 01/28/2018 PROCEDURE: CT HEAD WITHOUT CONTRAST. HISTORY: syncope? COMPARISON: None available. TECHNIQUE: Axial computed tomography images were obtained through the head/brain without intravenous contrast. Radiation dose: Total exam DLP = 759.3 mGy-cm. This CT exam was performed using one or more of the following dose reduction techniques: Automated exposure control, adjustment of the mA and/or kV according to patient size, and/or use of iterative reconstruction technique. FINDINGS: HEMORRHAGE: No intracranial hemorrhage. BRAIN: No mass effect or edema. No atrophy or chronic microvascular ischemic changes. VENTRICLES: Unremarkable. No hydrocephalus. CALVARIUM: Unremarkable. PARANASAL SINUSES: Unremarkable as visualized. No significant inflammatory changes. MASTOID AIR CELLS: Unremarkable as visualized. No inflammatory changes. OTHER FINDINGS: The report concurs with the preliminary [facility] report IMPRESSION: No acute intracranial findings
--- NOTE | 2018-01-29 09:00 | RAD ---
Date of service: 01/29/2018 PROCEDURE: Radiographs of the Left Shoulder HISTORY: shoulder pain COMPARISON: No prior. FINDINGS: BONES: No acute fracture or destructive bony lesion identified. JOINTS: Glenohumeral joint appears unremarkable. The acromioclavicular joint appears upper limits of normal width without definitive separation appreciable. SOFT TISSUES: Normal. OTHER FINDINGS: None. IMPRESSION: Upper limits normal width left AC joint without definite separation appreciated. Exam otherwise unremarkable.
[2018-01-29] MEDS: cefTRIAXone 1 gm 1 GM/100 ML BAG IVPB SCH (09:30)
[2018-01-29] MEDS: Azithromycin 500MG/NS 250ml 500 MG/250 ML BAG IVPB SCH (09:30)
[2018-01-29] MEDS ORDERED: Albuterol-Ipratrop 3 mg / 0.5 (3 ml) UD IH PRN (11:45)
[2018-01-29] MEDS ORDERED: Alum-Mag Hydrox-Simethicone Susp (30 mL) PO PRN (11:45)
[2018-01-29] MEDS: guaiFENesin 100 mg/5 ml Syrup UD PO SCH ×3 (13:24→23:14)
[2018-01-29] MEDS ORDERED: Acyclovir 500 MG in Sodium Chloride 0.9% 100 ML IV SCH (14:00)
[2018-01-29 14:15] LABS: BASO # 0.01 K/mm3 (0.0-2.0); BASO % 0.2 % (0.0-3.0); GRAN # 5.2 (1.4-6.5); GRAN % 78.3 % (50.0-68.0); HEMOGLOBIN 12.7 g/dL (12.0-16.0); LYMPH # 1.1 (1.2-3.4); LYMPH % 15.8 % (22.0-35.0); MEAN CELL VOLUME 85.8 fl (80.0-105.0); MEAN CORPUSCULAR HEMOGLOBIN 29.1 pg (25.0-35.0); MEAN PLATELET VOLUME 9.5 fl (7.0-11.0); MONO # 0.4 (0.1-0.6); MONO % 5.7 % (1.0-6.0); RBC 4.36 10^6/uL (3.5-6.1); RED CELL DISTRIBUTION WIDTH 11.8 % (11.5-14.5); WHITE BLOOD COUNT 6.6 10^3/uL (4.5-11.0)
[2018-01-29] MEDS: Albuterol-Ipratrop 3 mg / 0.5 (3 ml) UD IH SCH ×2 (14:22→20:36)
--- NOTE | 2018-01-29 18:06 | CARD ---
APPROVED REPORT Date of service: 01/28/2018 EKG Measurement Heart [id number] <Conclusion> Sinus tachycardia Otherwise normal ECG
[2018-01-30] MEDS: Sodium Chloride 0.9% 1,000 ML IV SCH (01:01)
[2018-01-30] MEDS ORDERED: guaiFENesin-Codeine 100-10mg/5ml Syrup (5 ml) UD PO ONE ×2 (02:43→17:09)
[2018-01-30] MEDS: Albuterol-Ipratrop 3 mg / 0.5 (3 ml) UD IH SCH ×4 (03:09→20:26)
[2018-01-30 06:34] LABS: BASO # 0.01 K/mm3 (0.0-2.0); BASO % 0.2 % (0.0-3.0); EOS % 0.3 % (1.5-5.0); GRAN # 4.73 (1.4-6.5); GRAN % 73.5 % (50.0-68.0); HEMOGLOBIN 11.2 g/dL (12.0-16.0); LYMPH # 1.2 (1.2-3.4); LYMPH % 18.8 % (22.0-35.0); MEAN CELL VOLUME 85.4 fl (80.0-105.0); MEAN CORPUSCULAR HEMOGLOBIN 28.1 pg (25.0-35.0); MEAN CORPUSCULAR HGB CONC 32.9 g/dl (31.0-37.0); MEAN PLATELET VOLUME 9.7 fl (7.0-11.0); MONO # 0.5 (0.1-0.6); MONO % 7.2 % (1.0-6.0); RBC 3.98 10^6/uL (3.5-6.1); WHITE BLOOD COUNT 6.4 10^3/uL (4.5-11.0)
[2018-01-30 06:59] LABS: ALB/GLOB RATIO 1.1 (1.1-1.8); ALBUMIN 3.6 g/dL (3.0-4.8); ALT/SGPT 23 U/L (7-56); AST/SGOT 29 U/L (14-36); BLOOD UREA NITROGEN 4 mg/dL (7-21); CALCIUM 8.3 mg/dL (8.4-10.5); GFR NON-AFRICAN AMERICAN > 60
[2018-01-30] MEDS: cefTRIAXone 1 gm 1 GM/100 ML BAG IVPB SCH (09:05)
[2018-01-30] MEDS: guaiFENesin 100 mg/5 ml Syrup UD PO SCH ×3 (09:05→18:08)
[2018-01-30] MEDS: Azithromycin 500MG/NS 250ml 500 MG/250 ML BAG IVPB SCH (09:05)
--- NOTE | 2018-01-30 09:47 | CON ---
DATE: 01/29/2018 The patient is in room 378. CHIEF COMPLAINT: Fever x2 days. HISTORY OF PRESENT ILLNESS: This is a 22-year-old female with a past medical history, had urinary tract infections in the past, history of , history of a wrist surgery in the past, who is now admitted with pulmonary symptoms of cough, fevers, myalgias, aches, and pains. She felt like she had the flu and cough is significant. PAST MEDICAL HISTORY: Significant for noncontributory. PAST SURGICAL HISTORY: Significant for and right wrist surgery. REVIEW OF SYSTEMS: Reveals that the patient does have some pelvic pain. ALLERGIES: The patient has no known allergy. SOCIAL HISTORY: She lives with her boyfriend and her daughter. It is a stable, constant relationship. She has never had any sexually transmitted diseases. Her mother lives upstairs. PHYSICAL EXAMINATION GENERAL: She is in bed, no acute distress, nontoxic. VITAL SIGNS: Noted a temperature of 99, T-max is 104, blood pressure is 114/70, respiratory rate of 20. HEENT: Examination of HEENT is unremarkable. NECK: Supple. LUNGS: Decreased breath sounds. HEART: Normal S1 and S2. ABDOMEN: Soft, nontender. LABORATORY DATA: Laboratory examination reveals a white count of 8.1, hemoglobin of 13, platelets of 163. Chemistries are noted to be normal. Urinalysis, 5 to 10 wbc's, small leukocyte esterase, trace protein, large blood. Influenza serology is negative. Microbiology is pending. IMAGING: Chest x-ray shows an infiltrate in the upper lobe. The patient is also complaining of a left shoulder pain. She has been having the left shoulder pain upper limit normal of left AC joint without definite separation. ASSESSMENT AND PLAN: This is a 22-year-old female with sepsis, with a right upper lobe community-acquired pneumonia, left shoulder pain, dysuria, pelvic pain upon urination, has a possible urinary tract infection. I doubt joint infection. She is able to fully extend her arm. We will order Chlamydia and GC workup, HIV workup, her PID workup. We will treat the patient with Ceftriaxone and azithromycin pending chavez culture serology, initial workup results, and also order an MRI of the left shoulder. The patient has a 3-year-old at home. She is not and she is not at this time. Pravin Sheppard MD
--- NOTE | 2018-01-30 13:17 | CP.PCM.PN ---
<Dimitri Gusman - Last Filed: 01/30/18 17:43> Subjective - Date & Time of Evaluation Date of Evaluation: 01/30/18 Time of Evaluation: 13:12 - Subjective Subjective: Dimitri Gusman DO PGY-1 Global Cto Progress Note for Hospitalist Dr. Mccall Pt was seen and examined this morning at bedside. She states that she is feeling about the same as yesterday. She states that she is still having some nausea, fevers, body aches and a dry cough. She states that she is not having any chills, hemoptysis, or night sweats. She is still having fevers overnight and into this AM. Objective - Vital Signs/Intake and Output Vital Signs (last 24 hours): Temp Pulse Resp BP Pulse Ox 98.7 F 94 H 20 102/62 99 01/30/18 06:00 01/30/18 06:00 01/30/18 06:00 01/30/18 06:00 01/30/18 06:00 Intake and Output: 01/30/18 01/30/18 06:59 18:59 Intake Total 1515 Output Total 800 Balance 715 - Medications Medications: Current Medications Acetaminophen (Tylenol 325mg Tab) 650 mg PO Q4H PRN PRN Reason: Fever >100.4 F Last Admin: 01/29/18 17:19 Dose: 650 mg Al Hydrox/Mg Hydrox/Simethicone (Maalox Plus 30 Ml) 30 ml PO DAILY PRN PRN Reason: Indigestion / Heartburn Albuterol/Ipratropium (Duoneb 3 Mg/0.5 Mg (3 Ml) Ud) 3 ml IH Q2H PRN PRN Reason: Shortness of Breath Albuterol/Ipratropium (Duoneb 3 Mg/0.5 Mg (3 Ml) Ud) 3 ml IH [id number] [facility] Last Admin: 01/30/18 08:21 Dose: Not Given Guaifenesin (Robitussin) 100 mg PO TID [facility] Last Admin: 01/30/18 09:05 Dose: 100 mg Sodium Chloride (Sodium Chloride 0.9%) 1,000 mls @ 100 mls/hr IV .Q10H [facility] Last Admin: 01/30/18 01:01 Dose: 100 mls/hr Ceftriaxone Sodium (Rocephin 1 Gram Ivpb) 1 gm in 100 mls @ 100 mls/hr IVPB DAILY [facility]; Protocol Last Admin: 01/30/18 09:05 Dose: 100 mls/hr Azithromycin (Zithromax 500mg In Ns) 500 mg in 250 mls @ 167 mls/hr IVPB DAILY [facility]; Protocol Last Admin: 01/30/18 09:05 Dose: 167 mls/hr Ibuprofen (Motrin Tab) 400 mg PO Q6H PRN PRN Reason: Fever >100.4 F Last Admin: 01/30/18 05:53 Dose: 400 mg Ondansetron HCl (Zofran Inj) 4 mg IVP Q4H PRN PRN Reason: Nausea/Vomiting Last Admin: 01/29/18 11:56 Dose: 4 mg Oseltamivir Phosphate (Tamiflu Cap) 75 mg PO BID [facility]; Protocol Stop: 02/02/18 18:01 Last Admin: 01/30/18 09:06 Dose: 75 mg Pantoprazole Sodium (Protonix Inj) 40 mg IVP DAILY [facility] Last Admin: 01/30/18 09:06 Dose: 40 mg - Labs Labs: 01/30/18 06:00 01/30/18 06:00 - Constitutional Appears: Well, Non-toxic, No Acute Distress - Head Exam Head Exam: ATRAUMATIC, NORMAL INSPECTION, NORMOCEPHALIC - Eye Exam Eye Exam: EOMI, Normal appearance, PERRL - Neck Exam Neck Exam: Full ROM, Normal Inspection. absent: Lymphadenopathy, Meningismus, Tenderness - Respiratory Exam Respiratory Exam: Clear to Ausculation Bilateral, NORMAL BREATHING PATTERN. absent: Accessory Muscle Use, Decreased Breath Sounds, Rales, Rhonchi, Wheezes - Cardiovascular Exam Cardiovascular Exam: RRR, +S1, +S2. absent: Gallop, Rubs - GI/Abdominal Exam GI & Abdominal Exam: Soft, Normal Bowel Sounds. absent: Guarding, Rigid, Tenderness - Extremities Exam Extremities Exam: Normal Capillary Refill, Normal Inspection. absent: Calf Tenderness, Pedal Edema, Tenderness - Back Exam Back Exam: NORMAL INSPECTION. absent: CVA tenderness (L), CVA tenderness (R) - Neurological Exam Neurological Exam: Awake, Oriented x3 - Psychiatric Exam Psychiatric exam: Normal Affect, Normal Mood - Skin Skin Exam: Dry, Intact, Normal Color, Warm Assessment and Plan - Assessment and Plan (Free Text) Assessment: Pt is a 22yo F w/no significant pmhx presnted to [facility] [place] [facility] on 01/29 w/ c/o fever, cough, and lightheadedness. She states that she did not have a flu shot yet. She was also noted to have a RUL infiltrate on CXR. ID on board. Plan: 1. Viral URI - Flu swab negative - F/u flu PCR - Cw Fluids - Tylenol PRN fever - CXR shows RUL infiltrate, ID on board and their recs are appreciated - Procal is low 2. RUL PNA - Pt denies travel or being born in TB endemic areas, and denies hemoptysis, or night sweats - Continue Zithromax 500mg - Cover for atypicals - Pts WBCs are not elevated (6.4) - Lactate is low at .8, and procal is low 3. Syncope Most likely 2/2 hypovolemia in the setting of illness/ high fevers and decreased PO intake. Or vasogal. - Less likely cardiac origin given age and EKG - EKG normal sinus - Electrolytes wnl - Will give IVF - CT Head negative 4. UTI: - Given Fevers and small bacteruria, and pyuria - C/w Rocephin 5. Shoulder/ Neck Pain - Most likely MSK in nature vs body aches from suspected flu or viral URI - RICE - Can advance to flexeril if necessary 6. Cold Sores: - Started on PO acycolvir 7. PPX: GI: protnix DVT: SCDs <Shabbir Mccall - Last Filed: 01/31/18 15:39> Objective - Vital Signs/Intake and Output Vital Signs (last 24 hours): Temp Pulse Resp BP Pulse Ox 98 F 77 19 104/68 98 01/31/18 08:13 01/31/18 08:13 01/31/18 08:13 01/31/18 08:13 01/31/18 08:13 Intake and Output: 01/31/18 01/31/18 06:59 18:59 Intake Total 1300 Balance 1300 - Medications Medications: Current Medications Acetaminophen (Tylenol 325mg Tab) 650 mg PO Q4H PRN PRN Reason: Fever >100.4 F Last Admin: 01/31/18 13:19 Dose: 650 mg Al Hydrox/Mg Hydrox/Simethicone (Maalox Plus 30 Ml) 30 ml PO DAILY PRN PRN Reason: Indigestion / Heartburn Azithromycin (Zithromax) 250 mg PO DAILY [facility]; Protocol Stop: 02/05/18 10:01 Sodium Chloride (Sodium Chloride 0.9%) 1,000 mls @ 100 mls/hr IV .Q10H [facility] Last Admin: 01/31/18 13:19 Dose: 100 mls/hr Ceftriaxone Sodium (Rocephin 1 Gram Ivpb) 1 gm in 100 mls @ 100 mls/hr IVPB DAILY [facility]; Protocol Last Admin: 01/31/18 09:43 Dose: 100 mls/hr Ibuprofen (Motrin Tab) 600 mg PO Q6H PRN PRN Reason: Fever >100.4 F Last Admin: 01/31/18 00:58 Dose: 600 mg Levalbuterol HCl (Xopenex) 1.25 mg IH [id number] [facility] Last Admin: 01/31/18 13:48 Dose: 1.25 mg Levalbuterol HCl (Xopenex) 1.25 mg IH Q2H PRN PRN Reason: Shortness of Breath Ondansetron HCl (Zofran Inj) 4 mg IVP Q4H PRN PRN Reason: Nausea/Vomiting Last Admin: 01/29/18 11:56 Dose: 4 mg Oseltamivir Phosphate (Tamiflu Cap) 75 mg PO BID [facility]; Protocol Stop: 02/02/18 18:01 Last Admin: 01/31/18 09:53 Dose: 75 mg Pantoprazole Sodium (Protonix Ec Tab) 40 mg PO 0600 [facility] Last Admin: 01/31/18 05:44 Dose: Not Given Promethazine HCl (Phenergan Syrup) 12.5 mg PO Q4H PRN PRN Reason: Cough Last Admin: 01/31/18 13:55 Dose: 12.5 mg - Labs Labs: 01/31/18 05:15 01/31/18 05:15 Attending/Attestation - Attestation I have personally seen and examined this patient.: Yes I have fully participated in the care of the patient.: Yes I have reviewed all pertinent clinical information, including history, physical exam and plan: Yes Notes (Text): 01/31/18 15:30 Attending note; Patient seen and examined with resident. Patient is alert and awake. Still spiking temperature. Complaining of generalized weakness. Dizziness is improving. Denies any urinary symptoms. Complaining of poor by mouth intake. Currently on IV fluids. Patient is a 22 year old female with no significant pmhx is admitted with low- grade fever, cough, and lightheadedness. 1. Viral symptom; patient's symptoms consistent with viral fever possible influ gregory. Influenza ordered. Started on Tamiflu. 2. Generalized weakness and dizziness; secondary to high fever. Continue Tylenol or Motrin. Started on IV fluids. 3. Right upper lobe pneumonia; on Rocephin and Zithromax. ID evaluation appreciated. 4. Blood culture, urine culture ordered. 5.GI prophylaxis with Protonix. 6. Zofran when necessary for nausea. Monitor closely. Upon discharge the patient will follow-up with PMD Dr. Deras. 01/31/18 15:38
--- NOTE | 2018-01-30 13:28 | MRI ---
Date of service: 01/30/2018 PROCEDURE: MRI of the left shoulder HISTORY: L shoulder pain COMPARISON: TECHNIQUE: MRI of the left shoulder was performed in multiple planes using multiple pulse sequences. FINDINGS: The rotator cuff muscles and tendons are normal in appearance with no tear or tendinopathy. The glenoid labrum and biceps tendon are intact. There is no joint effusion. The acromioclavicular joint is normal. IMPRESSION: Negative study
--- NOTE | 2018-01-30 18:40 | PN ---
DATE: 01/30/2018 SUBJECTIVE: The patient is seen earlier this morning. She is complaining that she was unable to get a good night sleep and her temperature is on a downward trend. PHYSICAL EXAMINATION: VITAL SIGNS: Temperature is 98, T-max earlier today was 101.1, yesterday it was at 102, day before it was 104, blood pressure is 102/62, respiratory rate is 20, and heart rate is 95. HEENT: Unremarkable. NECK: Supple. LUNGS: Decreased breath sounds. HEART: Normal S1 and S2. ABDOMEN: Soft and nontender. LABORATORY DATA: Examination reveals a white count of 6.4 and hemoglobin of 11. Blood gasses are noted. Chemistry reveals that the patient has an elevated C-reactive protein of 70.2, procalcitonin is 0.05. Urinalysis is noted. HIV is negative. Influenza is negative . Blood cultures have no growth. Review of orders revealed the patient's remainder of the workup is pending. The patient had an MRI of the shoulder and the results are pending. ASSESSMENT AND PLAN: This is a 22-year-old female with past medical history of urinary tract infection, section, and loop surgery, who is now admitted with sepsis with the right upper lobe community-acquired pneumonia and left shoulder pain. We will check her on the MRI. Blood cultures are pending and we will continue with the ceftriaxone, azithromycin, and Tamiflu We will follow with you. Pravin Sheppard MD
[2018-01-30] MEDS ORDERED: Levalbuterol 1.25 MG/3 ML Inhal Soln UD IH PRN (22:17)
[2018-01-30] MEDS ORDERED: Promethazine 6.25 MG/5 ML CUP PO ONE (22:21)
[2018-01-31] MEDS: Levalbuterol 1.25 MG/3 ML Inhal Soln UD IH SCH ×4 (02:25→19:58)
[2018-01-31] MEDS: Pantoprazole 40 mg EC Tab PO SCH (05:44)
[2018-01-31 07:15] LABS: EOS % 0.6 % (1.5-5.0); GRAN # 3.16 (1.4-6.5); GRAN % 59.7 % (50.0-68.0); HEMOGLOBIN 10.4 g/dL (12.0-16.0); LYMPH # 1.6 (1.2-3.4); MEAN CELL VOLUME 85.3 fl (80.0-105.0); MEAN CORPUSCULAR HEMOGLOBIN 28.3 pg (25.0-35.0); MEAN CORPUSCULAR HGB CONC 33.1 g/dl (31.0-37.0); MEAN PLATELET VOLUME 9.9 fl (7.0-11.0); MONO # 0.5 (0.1-0.6); MONO % 8.7 % (1.0-6.0); RBC 3.68 10^6/uL (3.5-6.1); RED CELL DISTRIBUTION WIDTH 12.2 % (11.5-14.5); WHITE BLOOD COUNT 5.3 10^3/uL (4.5-11.0)
[2018-01-31 07:20] LABS: ALB/GLOB RATIO 1.1 (1.1-1.8); ALBUMIN 3.3 g/dL (3.0-4.8); ALT/SGPT 23 U/L (7-56); AST/SGOT 23 U/L (14-36); BLOOD UREA NITROGEN 3 mg/dL (7-21); CALCIUM 8.4 mg/dL (8.4-10.5); GFR NON-AFRICAN AMERICAN > 60
[2018-01-31] MEDS: cefTRIAXone 1 gm 1 GM/100 ML BAG IVPB SCH (09:43)
[2018-01-31] MEDS: guaiFENesin 100 mg/5 ml Syrup UD PO SCH (09:43)
[2018-01-31] MEDS: Azithromycin 500MG/NS 250ml 500 MG/250 ML BAG IVPB SCH (11:17)
[2018-01-31] MEDS: Sodium Chloride 0.9% 1,000 ML IV SCH (13:19)
[2018-01-31] MEDS: Promethazine 6.25 MG/5 ML CUP PO PRN ×2 (13:55→17:28)
--- NOTE | 2018-01-31 16:29 | CP.PCM.PN ---
<Dimitri Gusman - Last Filed: 01/31/18 16:26> Subjective - Date & Time of Evaluation Date of Evaluation: 01/31/18 Time of Evaluation: 16:26 - Subjective Subjective: Dimitri Gusman DO PGY-1 Producer Progress Note for Hospitalist Dr. Mccall Pt was seen and examined this morning at bedside. She states that she is feeling better than yesterday. She states that she is still having some dry cough, but states the fevers and body ache is improving. She states that she is not having any chills, hemoptysis, or night sweats. She did have a temperature overnight but has been afebrile since. Objective - Vital Signs/Intake and Output Vital Signs (last 24 hours): Temp Pulse Resp BP Pulse Ox 98 F 138 H 19 104/68 98 01/31/18 08:13 01/31/18 10:00 01/31/18 08:13 01/31/18 08:13 01/31/18 08:13 Intake and Output: 01/31/18 01/31/18 06:59 18:59 Intake Total 1300 Balance 1300 - Medications Medications: Current Medications Acetaminophen (Tylenol 325mg Tab) 650 mg PO Q4H PRN PRN Reason: Fever >100.4 F Last Admin: 01/31/18 13:19 Dose: 650 mg Al Hydrox/Mg Hydrox/Simethicone (Maalox Plus 30 Ml) 30 ml PO DAILY PRN PRN Reason: Indigestion / Heartburn Azithromycin (Zithromax) 250 mg PO DAILY [facility]; Protocol Stop: 02/05/18 10:01 Sodium Chloride (Sodium Chloride 0.9%) 1,000 mls @ 100 mls/hr IV .Q10H [facility] Last Admin: 01/31/18 13:19 Dose: 100 mls/hr Ceftriaxone Sodium (Rocephin 1 Gram Ivpb) 1 gm in 100 mls @ 100 mls/hr IVPB [facility]; Protocol Last Admin: 01/31/18 09:43 Dose: 100 mls/hr Ibuprofen (Motrin Tab) 600 mg PO Q6H PRN PRN Reason: Fever >100.4 F Last Admin: 01/31/18 00:58 Dose: 600 mg Levalbuterol HCl (Xopenex) 1.25 mg IH [id number] [facility] Last Admin: 01/31/18 13:48 Dose: 1.25 mg Levalbuterol HCl (Xopenex) 1.25 mg IH Q2H PRN PRN Reason: Shortness of Breath Ondansetron HCl (Zofran Inj) 4 mg IVP Q4H PRN PRN Reason: Nausea/Vomiting Last Admin: 01/29/18 11:56 Dose: 4 mg Oseltamivir Phosphate (Tamiflu Cap) 75 mg PO BID [facility]; Protocol Stop: 02/02/18 18:01 Last Admin: 01/31/18 09:53 Dose: 75 mg Pantoprazole Sodium (Protonix Ec Tab) 40 mg PO 0600 [facility] Last Admin: 01/31/18 05:44 Dose: Not Given Promethazine HCl (Phenergan Syrup) 12.5 mg PO Q4H PRN PRN Reason: Cough Last Admin: 01/31/18 13:55 Dose: 12.5 mg - Labs Labs: 01/31/18 05:15 01/31/18 05:15 - Constitutional Appears: Well, Non-toxic, No Acute Distress - Head Exam Head Exam: ATRAUMATIC, NORMAL INSPECTION, NORMOCEPHALIC - Eye Exam Eye Exam: EOMI, Normal appearance Pupil Exam: PERRL - Neck Exam Neck Exam: Full ROM, Normal Inspection. absent: Meningismus - Respiratory Exam Respiratory Exam: Clear to Ausculation Bilateral, NORMAL BREATHING PATTERN. absent: Rhonchi, Wheezes, Respiratory Distress, Stridor - Cardiovascular Exam Cardiovascular Exam: RRR, +S1, +S2. absent: Gallop, Rubs - GI/Abdominal Exam GI & Abdominal Exam: Soft, Normal Bowel Sounds. absent: Firm, Rigid, Tenderness - Extremities Exam Extremities Exam: Full ROM, Normal Capillary Refill, Normal Inspection. absent: Calf Tenderness, Pedal Edema - Back Exam Back Exam: NORMAL INSPECTION. absent: CVA tenderness (L), CVA tenderness (R) - Neurological Exam Neurological Exam: Alert, Awake, Oriented x3 - Psychiatric Exam Psychiatric exam: Normal Affect, Normal Mood - Skin Skin Exam: Dry, Intact, Normal Color, Warm Assessment and Plan - Assessment and Plan (Free Text) Assessment: Pt is a 22yo F w/no significant pmhx pres[place] [facility] [place] [facility] [place] w/ c/o fever, cough, and lightheadedness. She states that she did not have a flu shot yet. She was also noted to have a RUL infiltrate on CXR. ID on board. Fever broke and she is feeling better. Plan: 1. Viral URI - Flu swab negative - F/u flu PCR - Cw Fluids - Tylenol PRN fever - Cont Tamiflu - CXR shows RUL infiltrate, ID on board and their recs are appreciated - Procal is low 2. RUL PNA - Pt denies travel or being born in TB endemic areas, and denies hemoptysis, or night sweats - Continue Rocephin and Zithromax - ID on board, recs appreciated - Pts WBCs are not elevated (6.4) - Lactate is low at .8, and procal is low 3. Syncope Most likely 2/2 hypovolemia in the setting of illness/ high fevers and decreased PO intake. Or vasogal. - Less likely cardiac origin given age and EKG - EKG normal sinus - Electrolytes wnl - Will give IVF - CT Head negative 4. UTI: - Given Fevers and small bacteruria, and pyuria - C/w Rocephin 5. Shoulder/ Neck Pain - Shoulder MRI is negative - Most likely MSK in nature vs body aches from suspected flu or viral URI - RICE - Can advance to flexeril if necessary 6. Cold Sores: - Started on PO acycolvir 7. PPX: GI: protnix DVT: SCDs <Shabbir Mccall - Last Filed: 01/31/18 17:05> Objective - Vital Signs/Intake and Output Vital Signs (last 24 hours): Temp Pulse Resp BP Pulse Ox 98.4 F 96 H 20 102/59 L 96 01/31/18 16:40 01/31/18 16:40 01/31/18 16:40 01/31/18 16:40 01/31/18 16:40 Intake and Output: 01/31/18 01/31/18 06:59 18:59 Intake Total 1300 Balance 1300 - Medications Medications: Current Medications Acetaminophen (Tylenol 325mg Tab) 650 mg PO Q4H PRN PRN Reason: Fever >100.4 F Last Admin: 01/31/18 13:19 Dose: 650 mg Al Hydrox/Mg Hydrox/Simethicone (Maalox Plus 30 Ml) 30 ml PO DAILY PRN PRN Reason: Indigestion / Heartburn Azithromycin (Zithromax) 250 mg PO DAILY [facility]; Protocol Stop: 02/05/18 10:01 Sodium Chloride (Sodium Chloride 0.9%) 1,000 mls @ 100 mls/hr IV .Q10H [facility] Last Admin: 01/31/18 13:19 Dose: 100 mls/hr Ceftriaxone Sodium (Rocephin 1 Gram Ivpb) 1 gm in 100 mls @ 100 mls/hr IVPB DAILY [facility]; Protocol Last Admin: 01/31/18 09:43 Dose: 100 mls/hr Ibuprofen (Motrin Tab) 600 mg PO Q6H PRN PRN Reason: Fever >100.4 F Last Admin: 01/31/18 00:58 Dose: 600 mg Levalbuterol HCl (Xopenex) 1.25 mg IH [id number] [facility] Last Admin: 01/31/18 13:48 Dose: 1.25 mg Levalbuterol HCl (Xopenex) 1.25 mg IH Q2H PRN PRN Reason: Shortness of Breath Ondansetron HCl (Zofran Inj) 4 mg IVP Q4H PRN PRN Reason: Nausea/Vomiting Last Admin: 01/29/18 11:56 Dose: 4 mg Oseltamivir Phosphate (Tamiflu Cap) 75 mg PO BID [facility]; Protocol Stop: 02/02/18 18:01 Last Admin: 01/31/18 09:53 Dose: 75 mg Pantoprazole Sodium (Protonix Ec Tab) 40 mg PO 0600 [facility] Last Admin: 01/31/18 05:44 Dose: Not Given Promethazine HCl (Phenergan Syrup) 12.5 mg PO Q4H PRN PRN Reason: Cough Last Admin: 01/31/18 13:55 Dose: 12.5 mg - Labs Labs: 01/31/18 05:15 01/31/18 05:15 Attending/Attestation - Attestation I have personally seen and examined this patient.: Yes I have fully participated in the care of the patient.: Yes I have reviewed all pertinent clinical information, including history, physical exam and plan: Yes Notes (Text): 01/31/18 17:03 Attending note; Patient seen and examined with resident. Patient is alert and awake. Fever is improving. Weakness is improving. Dizziness is improving. Denies any urinary symptoms. still Complaining of poor by mouth intake. Currently on IV fluids. Patient is a 22 year old female with no significant pmhx is admitted with low- grade fever, cough, and lightheadedness. 1. Viral symptom; patient's symptoms consistent with viral fever possible influ gregory. Influenza is negative.on Tamiflu. Symptoms improving slowly. Fever is coming down. 2. Generalized weakness and dizziness; improving slowly. Continue Tylenol or Motrin. Started on IV fluids. Still with poor by mouth intake . started on ensure . 3. Right upper lobe pneumonia; on Rocephin and Zithromax. ID evaluation appreciated. CT chest ordered. 4. Blood culture, urine culture is negative . MRSA screen is negative . 5.GI prophylaxis with Protonix. 6. Zofran when necessary for nausea. Monitor closely. Upon discharge the patient will follow-up with PMD Dr. Deras. 01/31/18 17:04
--- NOTE | 2018-01-31 17:29 | CT ---
Date of service: 01/31/2018 PROCEDURE: CT Chest without contrast HISTORY: fever COMPARISON: Chest x-ray 01/28/2018 TECHNIQUE: Contiguous axial images were obtained through the chest without intravenous contrast enhancement. Sagittal and coronal reconstructions were performed. Radiation dose: Total exam DLP = 163.31 mGy-cm. This CT exam was performed using one or more of the following dose reduction techniques: Automated exposure control, adjustment of the mA and/or kV according to patient size, and/or use of iterative reconstruction technique. FINDINGS: LUNGS: There is dense consolidation in the right upper lobe with air bronchograms consistent with pneumonia. MEDIASTINUM: Unremarkable thoracic aorta. No aneurysm. Normal sized heart. Main pulmonary artery unremarkable. No vascular congestion. No lymphadenopathy. No aortic atherosclerotic calcification. PLEURA: No pleural fluid. No pneumothorax. BONES: No fracture. No destructive lesion. UPPER ABDOMEN: Grossly unremarkable. OTHER FINDINGS: None. IMPRESSION: Right upper lobe pneumonia
[2018-02-01] MEDS: Promethazine 6.25 MG/5 ML CUP PO PRN ×3 (00:04→18:03)
[2018-02-01] MEDS: Sodium Chloride 0.9% 1,000 ML IV SCH ×2 (00:05→09:44)
[2018-02-01] MEDS: Levalbuterol 1.25 MG/3 ML Inhal Soln UD IH SCH ×4 (01:14→19:17)
[2018-02-01] MEDS: Pantoprazole 40 mg EC Tab PO SCH (06:16)
[2018-02-01 07:30] LABS: BASO # 0.01 K/mm3 (0.0-2.0); BASO % 0.3 % (0.0-3.0); EOS # 0.1 (0.0-0.7); EOS % 3.7 % (1.5-5.0); GRAN # 1.55 (1.4-6.5); GRAN % 48.3 % (50.0-68.0); HEMOGLOBIN 10.7 g/dL (12.0-16.0); LYMPH # 1.2 (1.2-3.4); MEAN CELL VOLUME 84.9 fl (80.0-105.0); MEAN CORPUSCULAR HEMOGLOBIN 27.8 pg (25.0-35.0); MEAN CORPUSCULAR HGB CONC 32.7 g/dl (31.0-37.0); MEAN PLATELET VOLUME 9.5 fl (7.0-11.0); MONO # 0.3 (0.1-0.6); MONO % 9.7 % (1.0-6.0); RBC 3.85 10^6/uL (3.5-6.1); RED CELL DISTRIBUTION WIDTH 12.3 % (11.5-14.5); WHITE BLOOD COUNT 3.2 10^3/uL (4.5-11.0)
[2018-02-01 07:53] LABS: ALB/GLOB RATIO 1.1 (1.1-1.8); ALBUMIN 3.5 g/dL (3.0-4.8); ALT/SGPT 25 U/L (7-56); AST/SGOT 36 U/L (14-36); BLOOD UREA NITROGEN 6 mg/dL (7-21); CALCIUM 8.8 mg/dL (8.4-10.5); GFR NON-AFRICAN AMERICAN > 60
[2018-02-01] MEDS: cefTRIAXone 1 gm 1 GM/100 ML BAG IVPB SCH (09:43)
--- NOTE | 2018-02-01 10:27 | PN ---
DATE: 02/01/2018 SUBJECTIVE: The patient is seen in room 378, bed 1. The patient is doing well. No fevers. No chills. No nausea. Headache is resolved. No more fevers. She has not had any fever for 24 hours. She is asking to go home. PHYSICAL EXAMINATION: VITAL SIGNS: On exam, temperature is 98, blood pressure is 111/70, respiratory rate of 18, heart rate of 69. HEENT: Examination of HEENT is unremarkable. NECK: Supple. LUNGS: Have decreased breath sounds. HEART: Normal S1, S2. ABDOMEN: Soft, nontender. LABORATORY DATA: Laboratory examination reveals a white count of 3.2, hemoglobin of 10, platelets of 194. Chemistries reveals a BUN of 6, creatinine of 0.5, C-reactive protein is 70. Urinalysis is noted. ALEXYS is negative. Serology is negative. HIV is negative. Blood cultures are no growth. Nares MRSA is negative. Urine cultures, no growth. The patient had a CAT scan of the chest yesterday, which revealed a right upper lobe pneumonia. ASSESSMENT AND PLAN: A 22-year-old female with past medical history of urinary tract infection, section, loop surgery, now admitted with sepsis, right upper lobe community-acquired pneumonia, shoulder pain. Negative MRI, negative cultures. Would complete with p.o. Zithromax and follow up radiology to resolution of the pneumonia and follow up the remainder workup as outpatient. The patient agrees to follow up with primary and pulmonary evaluation for radiology findings to resolution. Pravin Sheppard MD
--- NOTE | 2018-02-01 16:00 | CP.PCM.DIS ---
Provider - Provider Date of Admission: 01/29/18 14:11 Attending physician: Shabbir Mccall MD Time Spent in preparation of Discharge (in minutes): 45 Diagnosis - Discharge Diagnosis (1) Flu Status: Acute (2) Syncope Status: Acute Hospital Course - Lab Results Lab Results: Micro Results 01/29/18 14:05 Blood-Venous Blood Culture - Preliminary NO GROWTH AFTER 3 DAYS 01/29/18 13:55 Blood-Venous Blood Culture - Preliminary NO GROWTH AFTER 3 DAYS 01/29/18 14:40 Naris MRSA Culture (Admit) - Final MRSA NOT DETECTED 01/28/18 22:31 Urine,Clean Catch Urine Culture - Final No Growth (<1,000 CFU/ML) Most Recent Lab Values WBC 3.2 10^3/uL (4.5-11.0) L D 02/01/18 07:24 RBC 3.85 10^6/uL (3.5-6.1) 02/01/18 07:24 Hgb 10.7 g/dL (12.0-16.0) L 02/01/18 07:24 Hct 32.7 % (36.0-48.0) L 02/01/18 07:24 MCV 84.9 fl (80.0-105.0) 02/01/18 07:24 MCH 27.8 pg (25.0-35.0) 02/01/18 07:24 MCHC 32.7 g/dl (31.0-37.0) 02/01/18 07:24 RDW 12.3 % (11.5-14.5) 02/01/18 07:24 Plt Count 194 10^3/uL (120.0-450.0) 02/01/18 07:24 MPV 9.5 fl (7.0-11.0) 02/01/18 07:24 Gran % 48.3 % (50.0-68.0) L 02/01/18 07:24 Lymph % (Auto) 38.0 % (22.0-35.0) H 02/01/18 07:24 Cottle % (Auto) 9.7 % (1.0-6.0) H 02/01/18 07:24 Eos % (Auto) 3.7 % (1.5-5.0) 02/01/18 07:24 Baso % (Auto) 0.3 % (0.0-3.0) 02/01/18 07:24 Gran # 1.55 (1.4-6.5) 02/01/18 07:24 Lymph # (Auto) 1.2 (1.2-3.4) 02/01/18 07:24 Cottle # (Auto) 0.3 (0.1-0.6) 02/01/18 07:24 Eos # (Auto) 0.1 (0.0-0.7) 02/01/18 07:24 Baso # (Auto) 0.01 K/mm3 (0.0-2.0) 02/01/18 07:24 ESR 35 mm/hr (0.0-20.0) H 01/29/18 13:00 pO2 33 mm/Hg (30-55) 01/28/18 23:00 VBG pH 7.38 (7.32-7.43) 01/28/18 23:00 VBG pCO2 48.0 (40-60) 01/28/18 23:00 VBG HCO3 28.4 mmol/l (21-28) H 01/28/18 23:00 VBG Total CO2 29.9 mmol.L (22-28) H 01/28/18 23:00 VBG O2 Sat (Calc) 68.1 % (40-65) H 01/28/18 23:00 VBG Base Excess 2.5 mmol/L (0.0-2.0) H 01/28/18 23:00 VBG Potassium 3.9 mmol/L (3.6-5.2) 01/28/18 23:00 Sodium 136.0 mmol/L (132-148) 01/28/18 23:00 Chloride 101.0 mmol/L (98-107) 01/28/18 23:00 Glucose 104 mg/dl (65-105) 01/28/18 23:00 Lactate 0.8 mmol/L (0.7-2.1) 01/28/18 23:00 FiO2 21.0 % 01/28/18 23:00 Sodium 140 mmol/L (132-148) 02/01/18 07:24 Potassium 3.8 mmol/L (3.6-5.0) 02/01/18 07:24 Chloride 105 mmol/L (98-107) 02/01/18 07:24 Carbon Dioxide 28 mmol/L (21-33) 02/01/18 07:24 Anion Gap 11 (10-20) 02/01/18 07:24 BUN 6 mg/dL (7-21) L 02/01/18 07:24 Creatinine 0.5 mg/dl (0.7-1.2) L 02/01/18 07:24 Est GFR ( Amer) > 60 02/01/18 07:24 Est GFR (Non-Af Amer) > 60 02/01/18 07:24 Random Glucose 93 mg/dL (70-110) 02/01/18 07:24 Lactic Acid 1.7 mmol/L (0.7-2.1) 01/29/18 13:55 Calcium 8.8 mg/dL (8.4-10.5) 02/01/18 07:24 Phosphorus 3.6 mg/dL (2.5-4.5) 01/30/18 06:00 Magnesium 2.1 mg/dL (1.7-2.2) 01/30/18 06:00 Total Bilirubin 0.2 mg/dL (0.2-1.3) 02/01/18 07:24 AST 36 U/L (14-36) D 02/01/18 07:24 ALT 25 U/L (7-56) 02/01/18 07:24 Alkaline Phosphatase 56 U/L (38-126) 02/01/18 07:24 Total Creatine Kinase 76 U/L (35-230) 01/29/18 13:55 C-Reactive Protein 70.20 mg/L (0.0-9.9) H 01/29/18 13:00 Total Protein 6.7 g/dL (5.8-8.3) 02/01/18 07:24 Albumin 3.5 g/dL (3.0-4.8) 02/01/18 07:24 Globulin 3.3 gm/dL 02/01/18 07:24 Albumin/Globulin Ratio 1.1 (1.1-1.8) 02/01/18 07:24 Procalcitonin < 0.05 NG/ML (0.19-0.49) L 01/29/18 09:40 Venous Blood Potassium 3.9 mmol/L (3.6-5.2) 01/28/18 23:00 Urine Color Yellow (YELLOW) 01/28/18 23:02 Urine Appearance Sl cloudy (CLEAR) 01/28/18 23:02 Urine pH 6.5 (4.7-8.0) 01/28/18 23:02 Ur Specific Wenden 1.015 (1.005-1.035) 01/28/18 23:02 Urine Protein Trace mg/dL (<30 mg/dL) H 01/28/18 23:02 Urine Glucose (UA) Negative mg/dL (NEGATIVE) 01/28/18 23:02 Urine Ketones Negative mg/dL (NEGATIVE) 01/28/18 23:02 Urine Blood Large (NEGATIVE) H 01/28/18 23:02 Urine Nitrate Negative (NEGATIVE) 01/28/18 23: Urine Bilirubin Negative (NEGATIVE) 01/28/18 23:02 Urine Urobilinogen 0.2 E.U./dL (<1 E.U./dL) 01/28/18 23:02 Ur Leukocyte Esterase Small Aguilar/uL (NEGATIVE) H 01/28/18 23:02 Urine RBC 2 - 5 /hpf (0-2) 01/28/18 23:02 Urine WBC 5 - 10 /hpf (0-6) 01/28/18 23:02 Ur Epithelial Cells 6 - 8 /hpf (0-5) 01/28/18 23:02 Amorphous Sediment Few 01/28/18 23:02 Urine Bacteria Small (NEG) 01/28/18 23:02 ALEXYS Screen Negative (Negative) 01/29/18 14:15 HIV-1 Antibody TEST NOT PERFORMED 01/29/18 09:40 HIV-2 Antibody TEST NOT PERFORMED 01/29/18 09:40 HIV 1&2 Ag/Ab, 4th Gen Nonreactive (Nonreactive) 01/29/18 09:40 Influenza Typ A,B (EIA) Negative for flu a/b (NEGATIVE) 01/28/18 21:15 Ur Strep pneumoniae Ag Not detected (Not Detected) 01/29/18 11:28 - Hospital Course Hospital Course: Upon Admission: Pt is a 22F w/ no significant medical history presnted to [facility] on 01/29 w/ c/o fever, cough, and lightheadedness. Patient reported that over the past 2-3 days she has been having general malaise, fever, cough, body aches n/v w/ 2 episodes NBNB vomitus, and decreased PO intake. She denies any sick contact, or recent travel. Patient does report decreased PO intake Of note patient reported chronic L sided shoulder pain w/ chronic L sided neck pain. Denies any headache, visual disturbances, photophobia. She did report that she passed out prior to arrival. Reported feeling light headed and dizzy prior to passing out; lost consciousness for what she reports as minutes; unwitnessed; reports she was unconscious for "less than a few minutes"; Denies any trauma to her head. Denies any seizure like symptoms. Denies UTI / Dysuria / Burning upon urination or discharge. Upon presentation to ED her TMax was 103.1. Hospital course: Pt was being worked up for suspected viral vs bacterial infection. Rapid flu and flu TRINIDAD came back negative. Pts WBC was not elevated, and was continually spiking high fevers ranging from 101-103. ID was consulted, they started tamiflu and started ceftriaxone and zithromax for RUL PNA. Pt denies any travel and was born in [place], denies night sweats or hemoptysis. Blood and urine cultures came back negative. Pt began responding to the treatment after a couple of days and became afebrile. Pt was monitored for over 24 hours with no return of the fever. Pt states that she wishes to be d/[place] and ID is ok to d/c the pt with out pt follow up and radiology for the resolution of RUL PNA. Pt was given explicit instructions to complete her course of antibiotics as an outpt and to follow up with her PMD 3-4 days after discharge. Pt stated understanding of the plan and is in agreement with the stated instructions. All questions and concerns were address and answered before the pt was d/saturnino. Upon discharge: The pt was given the instructions to: - Please follow up with your primary care doctor within 3-4 days after discharge. - Please take the prescribed antibiotics as directed for the full duration listed on the prescription. - Ensure to wash hands well after coming in from outdoors or being around those who are sick. - Please take your promethazine as needed for cough and your ibuprofen as needed if you being having any fevers. - Please return to the Emergency department if you have any worsening, new or concerning symptoms. Pt stated understanding and agreement with d/c instructions and all questions and concerns were addressed before pt was d/sat[place]ino. Discharge Exam - Head Exam Head Exam: ATRAUMATIC, NORMAL INSPECTION, NORMOCEPHALIC - Eye Exam Eye Exam: EOMI, Normal appearance, PERRL - Neck Exam Neck exam: Full Rom, Normal Inspection - Respiratory Exam Respiratory Exam: NORMAL BREATHING PATTERN, UNREMARKABLE. absent: Accessory Muscle Use, Decreased Breath Sounds, Rales, Rhonchi, Wheezes, Respiratory Distress, Stridor - Cardiovascular Exam Cardiovascular Exam: RRR, +S1, +S2. absent: Gallop, Rubs - GI/Abdominal Exam GI & Abdominal Exam: Normal Bowel Sounds, Soft, Unremarkable. absent: Rigid, Tenderness - Back Exam Back exam: NORMAL INSPECTION. absent: CVA tenderness (L), CVA tenderness (R) - Neurological Exam Neurological exam: Alert, Oriented x3 - Psychiatric Exam Psychiatric exam: Normal Affect, Normal Mood - Skin Skin Exam: Dry, Intact, Normal Color, Warm Discharge Plan - Discharge Medications Prescriptions: Azithromycin [Z-Inder] 250 mg PO DAILY #6 tab Ibuprofen [Motrin Tab] 600 mg PO Q6H PRN 7 Days #28 tab PRN Reason: Fever >100.4 F Promethazine [Phenergan Syrup] 12.5 mg PO Q4H PRN 7 Days #42 dose PRN Reason: Cough - Follow Up Plan Condition: STABLE Disposition: HOME/ ROUTINE Instructions: Flu, Adult (DC), Community-Acquired Pneumonia, Adult (DC) Additional Instructions: - Please follow up with your primary care doctor within 3-4 days after discharge. - Please take the prescribed antibiotics as directed for the full duration listed on the prescription. - Ensure to wash hands well after coming in from outdoors or being around those who are sick. - Please take your promethazine as needed for cough and your ibuprofen as needed if you being having any fevers. - Please return to the Emergency department if you have any worsening, new or concerning symptoms. Referrals: Marialuisa Deras MD [Family Provider] -
--- NOTE | 2018-02-01 16:52 | CP.PCM.PN ---
Subjective - Date & Time of Evaluation Date of Evaluation: 02/01/18 Time of Evaluation: 16:47 - Subjective Subjective: Dimitri Gusman DO PGY-1 [employer] Progress Note for Hospitalist Dr. Mccall Pt was seen and examined this morning at bedside. She states that she is feeling better than yesterday. She states that she is still having some dry cough, but states the fevers and body ache is improving. She states that she is not having any chills, hemoptysis, or night sweats. She remained afebrile for greater than 24 hours, but still has a persistent cough. She is able to tolerate her diet with no associated n/v. Objective - Vital Signs/Intake and Output Vital Signs (last 24 hours): Temp Pulse Resp BP Pulse Ox 98 F 109 H 19 111/76 98 02/01/18 08:28 02/01/18 10:00 02/01/18 08:28 02/01/18 08:28 02/01/18 08:28 - Medications Medications: Current Medications Acetaminophen (Tylenol 325mg Tab) 650 mg PO Q4H PRN PRN Reason: Fever >100.4 F Last Admin: 01/31/18 13:19 Dose: 650 mg Al Hydrox/Mg Hydrox/Simethicone (Maalox Plus 30 Ml) 30 ml PO DAILY PRN PRN Reason: Indigestion / Heartburn Azithromycin (Zithromax) 250 mg PO DAILY [facility]; Protocol Stop: 02/05/18 10:01 Last Admin: 02/01/18 09:44 Dose: 250 mg Sodium Chloride (Sodium Chloride 0.9%) 1,000 mls @ 100 mls/hr IV .Q10H [facility] Last Admin: 02/01/18 09:44 Dose: 100 mls/hr Ibuprofen (Motrin Tab) 600 mg PO Q6H PRN PRN Reason: Fever >100.4 F Last Admin: 02/01/18 01:45 EDT Dose: 600 mg Levalbuterol HCl (Xopenex) 1.25 mg IH [id number] [facility] Last Admin: 02/01/18 13:38 Dose: 1.25 mg Levalbuterol HCl (Xopenex) 1.25 mg IH Q2H PRN PRN Reason: Shortness of Breath Ondansetron HCl (Zofran Inj) 4 mg IVP Q4H PRN PRN Reason: Nausea/Vomiting Last Admin: 01/29/18 11:56 Dose: 4 mg Pantoprazole Sodium (Protonix Ec Tab) 40 mg PO 0600 [facility] Last Admin: 02/01/18 06:16 Dose: Not Given Promethazine HCl (Phenergan Syrup) 12.5 mg PO Q4H PRN PRN Reason: Cough Last Admin: 02/01/18 13:30 Dose: 12.5 mg - Labs Labs: 02/01/18 07:24 02/01/18 07:24 - Constitutional Appears: Well, Non-toxic, No Acute Distress - Head Exam Head Exam: ATRAUMATIC, NORMAL INSPECTION, NORMOCEPHALIC - Eye Exam Eye Exam: EOMI, Normal appearance, PERRL Pupil Exam: NORMAL ACCOMODATION - Neck Exam Neck Exam: Full ROM, Normal Inspection. absent: Lymphadenopathy, Meningismus, Tenderness - Respiratory Exam Respiratory Exam: Clear to Ausculation Bilateral, NORMAL BREATHING PATTERN. absent: Rales, Rhonchi, Wheezes - Cardiovascular Exam Cardiovascular Exam: RRR, +S1, +S2. absent: Gallop, Rubs - GI/Abdominal Exam GI & Abdominal Exam: Soft, Normal Bowel Sounds. absent: Tenderness - Extremities Exam Extremities Exam: Normal Inspection - Back Exam Back Exam: NORMAL INSPECTION. absent: CVA tenderness (L), CVA tenderness (R) - Neurological Exam Neurological Exam: Alert, Awake, Oriented x3 - Psychiatric Exam Psychiatric exam: Normal Affect, Normal Mood - Skin Skin Exam: Dry, Intact, Normal Color, Warm Assessment and Plan (1) Flu Status: Acute (2) Syncope Status: Acute - Assessment and Plan (Free Text) Assessment: Pt is a 22yo F w/no significant pmhx presnted to [facility] on 01/29 w/ c/o fever, cough, and lightheadedness. She states that she did not have a flu shot yet. She was also noted to have a RUL infiltrate on CXR. ID on board. Fever broke and she is feeling better. Plan: 1. Viral URI - Improved - Flu swab negative - F/u flu PCR - Cw Fluids - Tylenol PRN fever - CXR shows RUL infiltrate, ID on board and their recs are appreciated - Procal is low 2. RUL PNA - Pt denies travel or being born in TB endemic areas, and denies hemoptysis, or night sweats - Continue Rocephin and Zithromax - ID on board, recs appreciated - Lactate is low at .8, and procal is low 3. Syncope Most likely 2/2 hypovolemia in the setting of illness/ high fevers and decreased PO intake. Or vasogal - Improved - Less likely cardiac origin given age and EKG - EKG normal sinus - Electrolytes wnl - Will give IVF - CT Head negative 4. UTI - Improved - Given Fevers and small bacteruria, and pyuria - Urine culture (-) 5. Shoulder/ Neck Pain - Shoulder MRI is negative - Most likely MSK in nature vs body aches from suspected flu or viral URI - RICE - Can advance to [facility] if necessary 6. PPX: GI: protnix DVT: SCDs Case seen and discussed with Dr. Stefany Gusman DO PGY1
[2018-02-01 17:21] VITALS: O2SAT 97
[2018-02-02] MEDS: Promethazine 6.25 MG/5 ML CUP PO PRN (01:18)
[2018-02-02] MEDS: Levalbuterol 1.25 MG/3 ML Inhal Soln UD IH SCH ×3 (01:50→13:28)
[2018-02-02] MEDS: Pantoprazole 40 mg EC Tab PO SCH (05:20)
[2018-02-02 06:41] LABS: ALBUMIN 3.6 g/dL (3.0-4.8); BASO # 0.03 K/mm3 (0.0-2.0); BASO % 0.8 % (0.0-3.0); BLOOD UREA NITROGEN 16 mg/dL (7-21); CALCIUM 9.1 mg/dL (8.4-10.5); EOS # 0.2 (0.0-0.7); EOS % 4.3 % (1.5-5.0); GFR NON-AFRICAN AMERICAN > 60; GRAN # 1.38 (1.4-6.5); GRAN % 37.2 % (50.0-68.0); HEMOGLOBIN 11.3 g/dL (12.0-16.0); LYMPH # 1.7 (1.2-3.4); LYMPH % 46.6 % (22.0-35.0); MEAN CELL VOLUME 85.3 fl (80.0-105.0); MEAN CORPUSCULAR HEMOGLOBIN 28.2 pg (25.0-35.0); MEAN PLATELET VOLUME 9.3 fl (7.0-11.0); MONO # 0.4 (0.1-0.6); MONO % 11.1 % (1.0-6.0); RBC 4.01 10^6/uL (3.5-6.1); RED CELL DISTRIBUTION WIDTH 12.1 % (11.5-14.5); WHITE BLOOD COUNT 3.7 10^3/uL (4.5-11.0)
[2018-02-02 06:42] LABS: ALT/SGPT 26 U/L (7-56); AST/SGOT 34 U/L (14-36)
[2018-02-02 08:27] VITALS: BP 107/68; PULSE 67; RESP 18; TEMP 97.8
--- NOTE | 2018-02-02 09:13 | PN ---
DATE: 01/31/2018 SUBJECTIVE: The patient is in bed, in no acute distress, nontoxic. PHYSICAL EXAMINATION: VITAL SIGNS: On exam, temperature is 98, T-max is of 100.4 earlier, blood pressure is 104/60, respiratory rate of 80. HEENT: Examination of HEENT is unremarkable. NECK: Supple. LUNGS: Have decreased breath sounds. HEART: Normal S1, S2. ABDOMEN: Soft, nontender. LABORATORY DATA: Laboratory examination reveals a white count of 5.3, hemoglobin of 10, platelets of 160. Chemistries reveals a BUN of 3, creatinine of 0.6, procalcitonin 0.05. Urinalysis is noted and serology, HIV is nonreactive. Influenza is negative. Microbiology reveals nares MRSA is negative. Blood cultures are negative, urine cultures are negative and the patient's procalcitonin is also negative. Review of orders reveals the patient to be on Tamiflu, ceftriaxone and azithromycin. ASSESSMENT AND PLAN: A 22-year-old female with history of urinary tract infection, section and was admitted with sepsis, right upper lobe community-acquired pneumonia, left shoulder pain. MRI of the left shoulder is negative and thus far, all cultures are negative. Serology is negative. Influenza is negative, on ceftriaxone and Zithromax. We will order a CT of the chest and change the Zithromax to p.o., most likely viral etiology, waiting for the influenza PCR. We will order a CAT scan of the chest. We will follow closely with you. The patient's fever tends to be on a downward trend, was high as 104 on 01/29/2018 and pulmonary symptoms are improving. The patient's ALEXYS screen is negative. We will check on the final culture results. Pravin Sheppard MD
--- NOTE | 2018-02-02 16:21 | CP.PCM.DIS ---
<Dimitri Gusman - Last Filed: 02/02/18 16:06> Provider - Provider Date of Admission: 01/29/18 14:11 Attending physician: Shabbir Mccall MD Time Spent in preparation of Discharge (in minutes): 45 Diagnosis - Discharge Diagnosis (1) Flu Status: Acute (2) Syncope Status: Acute (3) PNA (pneumonia) Status: Acute Hospital Course - Lab Results Lab Results: Micro Results 01/29/18 14:05 Blood-Venous Blood Culture - Preliminary NO GROWTH AFTER 4 DAYS 01/29/18 13:55 Blood-Venous Blood Culture - Preliminary NO GROWTH AFTER 4 DAYS 01/29/18 14:40 Naris MRSA Culture (Admit) - Final MRSA NOT DETECTED 01/28/18 22:31 Urine,Clean Catch Urine Culture - Final No Growth (<1,000 CFU/ML) Most Recent Lab Values WBC 3.7 10^3/uL (4.5-11.0) L 02/02/18 05:30 RBC 4.01 10^6/uL (3.5-6.1) 02/02/18 05:30 Hgb 11.3 g/dL (12.0-16.0) L 02/02/18 05:30 Hct 34.2 % (36.0-48.0) L 02/02/18 05:30 MCV 85.3 fl (80.0-105.0) 02/02/18 05:30 MCH 28.2 pg (25.0-35.0) 02/02/18 05:30 MCHC 33.0 g/dl (31.0-37.0) 02/02/18 05:30 RDW 12.1 % (11.5-14.5) 02/02/18 05:30 Plt Count 250 10^3/uL (120.0-450.0) 02/02/18 05:30 MPV 9.3 fl (7.0-11.0) 02/02/18 05:30 Gran % 37.2 % (50.0-68.0) L 02/02/18 05:30 Lymph % (Auto) 46.6 % (22.0-35.0) H 02/02/18 05:30 Bell % (Auto) 11.1 % (1.0-6.0) H 02/02/18 05:30 Eos % (Auto) 4.3 % (1.5-5.0) 02/02/18 05:30 Baso % (Auto) 0.8 % (0.0-3.0) 02/02/18 05:30 Gran # 1.38 (1.4-6.5) L 02/02/18 05:30 Lymph # (Auto) 1.7 (1.2-3.4) 02/02/18 05:30 Bell # (Auto) 0.4 (0.1-0.6) 02/02/18 05:30 Eos # (Auto) 0.2 (0.0-0.7) 02/02/18 05:30 Baso # (Auto) 0.03 K/mm3 (0.0-2.0) 02/02/18 05:30 ESR 35 mm/hr (0.0-20.0) H 01/29/18 13:00 pO2 33 mm/Hg (30-55) 01/28/18 23:00 VBG pH 7.38 (7.32-7.43) 01/28/18 23:00 VBG pCO2 48.0 (40-60) 01/28/18 23:00 VBG HCO3 28.4 mmol/l (21-28) H 01/28/18 23:00 VBG Total CO2 29.9 mmol.L (22-28) H 01/28/18 23:00 VBG O2 Sat (Calc) 68.1 % (40-65) H 01/28/18 23:00 VBG Base Excess 2.5 mmol/L (0.0-2.0) H 01/28/18 23:00 VBG Potassium 3.9 mmol/L (3.6-5.2) 01/28/18 23:00 Sodium 136.0 mmol/L (132-148) 01/28/18 23:00 Chloride 101.0 mmol/L (98-107) 01/28/18 23:00 Glucose 104 mg/dl (65-105) 01/28/18 23:00 Lactate 0.8 mmol/L (0.7-2.1) 01/28/18 23:00 FiO2 21.0 % 01/28/18 23:00 Sodium 141 mmol/L (132-148) 02/02/18 05:30 Potassium 4.1 mmol/L (3.6-5.0) 02/02/18 05:30 Chloride 103 mmol/L (98-107) 02/02/18 05:30 Carbon Dioxide 30 mmol/L (21-33) 02/02/18 05:30 Anion Gap 12 (10-20) 02/02/18 05:30 BUN 16 mg/dL (7-21) 02/02/18 05:30 Creatinine 0.6 mg/dl (0.7-1.2) L 02/02/18 05:30 Est GFR ( Amer) > 60 02/02/18 05:30 Est GFR (Non-Af Amer) > 60 02/02/18 05:30 Random Glucose 85 mg/dL (70-110) 02/02/18 05:30 Lactic Acid 1.7 mmol/L (0.7-2.1) 01/29/18 13:55 Calcium 9.1 mg/dL (8.4-10.5) 02/02/18 05:30 Phosphorus 3.6 mg/dL (2.5-4.5) 01/30/18 06:00 Magnesium 2.1 mg/dL (1.7-2.2) 01/30/18 06:00 Total Bilirubin 0.2 mg/dL (0.2-1.3) 02/02/18 05:30 AST 34 U/L (14-36) 02/02/18 05:30 ALT 26 U/L (7-56) 02/02/18 05:30 Alkaline Phosphatase 59 U/L (38-126) 02/02/18 05:30 Total Creatine Kinase 76 U/L (35-230) 01/29/18 13:55 C-Reactive Protein 70.20 mg/L (0.0-9.9) H 01/29/18 13:00 Total Protein 7.0 g/dL (5.8-8.3) 02/02/18 05:30 Albumin 3.6 g/dL (3.0-4.8) 02/02/18 05:30 Globulin 3.4 gm/dL 02/02/18 05:30 Albumin/Globulin Ratio 1.0 (1.1-1.8) L 02/02/18 05:30 Procalcitonin < 0.05 NG/ML (0.19-0.49) L 01/29/18 09:40 Venous Blood Potassium 3.9 mmol/L (3.6-5.2) 01/28/18 23:00 Urine Color Yellow (YELLOW) 01/28/18 23:02 Urine Appearance Sl cloudy (CLEAR) 01/28/18 23:02 Urine pH 6.5 (4.7-8.0) 01/28/18 23:02 Ur Specific Tolar 1.015 (1.005-1.035) 01/28/18 23:02 Urine Protein Trace mg/dL (<30 mg/dL) H 01/28/18 23:02 Urine Glucose (UA) Negative mg/dL (NEGATIVE) 01/28/18 23:02 Urine Ketones Negative mg/dL (NEGATIVE) 01/28/18 23:02 Urine Blood Large (NEGATIVE) H 01/28/18 23:02 Urine Nitrate Negative (NEGATIVE) 01/28/18 23:02 Urine Bilirubin Negative (NEGATIVE) 01/28/18 23:02 Urine Urobilinogen 0.2 E.U./dL (<1 E.U./dL) 01/28/18 23:02 Ur Leukocyte Esterase Small Aguilar/uL (NEGATIVE) H 01/28/18 23:02 Urine RBC 2 - 5 /hpf (0-2) 01/28/18 23:02 Urine WBC 5 - 10 /hpf (0-6) 01/28/18 23:02 Ur Epithelial Cells 6 - 8 /hpf (0-5) 01/28/18 23:02 Amorphous Sediment Few 01/28/18 23:02 Urine Bacteria Small (NEG) 01/28/18 23:02 ALEXYS Screen Negative (Negative) 01/29/18 14:15 HSV IgM Ab Screen Negative (Negative) 01/29/18 14:15 HSV I IgM Titer 01/29/18 14:15 HSV II IgM Titer 01/29/18 14:15 HHV-6 IgM Ab Scrn Negative (Negative) 01/29/18 14:15 HIV-1 Antibody TEST NOT PERFORMED 01/29/18 09:40 HIV-2 Antibody TEST NOT PERFORMED 01/29/18 09:40 HIV 1&2 Ag/Ab, 4th Gen Nonreactive (Nonreactive) 01/29/18 09:40 Influenza Typ A,B (EIA) Negative for flu a/b (NEGATIVE) 01/28/18 21:15 Mycoplasma pneumon IgG <=0.90 (<=0.90) 01/29/18 09:40 Mycoplasma pneumon IgM 440 U/mL (<770) 01/29/18 09:40 Ur Strep pneumoniae Ag Not detected (Not Detected) 01/29/18 11:28 - Hospital Course Hospital Course: Upon Admission: Pt is a 22F w/ no significant medical history presnted to [facility] on 01/29 w/ c/o fever, cough, and lightheadedness. Patient reported that over the past 2-3 days she has been having general malaise, fever, cough, body aches n/v w/ 2 episodes NBNB vomitus, and decreased PO intake. She denies any sick contact, or recent travel. Patient does report decreased PO intake Of note patient reported chronic L sided shoulder pain w/ chronic L sided neck pain. Denies any headache, visual disturbances, photophobia. She did report that she passed out prior to arrival. Reported feeling light headed and dizzy prior to passing out; lost consciousness for what she reports as minutes; unwitnessed; reports she was unconscious for "less than a few minutes"; Denies any trauma to her head. Denies any seizure like symptoms. Denies UTI / Dysuria / Burning upon urination or discharge. Upon presentation to ED her TMax was 103.1. Hospital course: Pt was being worked up for suspected viral vs bacterial infection. Rapid flu and flu TRINIDAD came back negative. Pts WBC was not elevated, and was continually spiking high fevers ranging from 101-103. ID was consulted, they started tamiflu and started ceftriaxone and zithromax for RUL PNA. Pt denies any travel and was born in [place], denies night sweats or hemoptysis. Blood and urine cultures came back negative. Pt began responding to the treatment after a couple of days and became afebrile, and completed full course of tamiflu. Pt was monitored for over 24 hours with no return of the fever. Pt states that she wishes to be d/sat[place]ino and ID is ok to d/c the pt with out pt follow up and follow up radiology for the resolution of RUL PNA. Pt was given explicit instructions to complete her course of antibiotics as an outpt and to follow up with her PMD 3-4 days after discharge. Pt stated understanding of the plan and is in agreement with the stated instructions. All questions and concerns were address and answered before the pt was d/sat[place]. Upon discharge: The pt was given the instructions to: - Please follow up with primary care doctor within 3-5 days after discharge. You can see Dr Randall at [facility] clinic. You will need repeat imaging done to make sure you right upper lobe pneumonia has resolved. This should be done with your primary care doctor. Further work up to be done with your primary care doctor. - Your white blood cell count was noted to be low upon discharge, likely due to the infection you had. Please repeat your blood count in 1-2 weeks with your primary care doctor. - Take zithromax as prescribed. - Take cough medicine promethazine as needed for cough. - Take over the counter ibuprofen as needed for fevers/body aches. - Please take the prescribed antibiotics as directed for the full duration listed on the prescription. - Ensure to wash hands well after coming in from outdoors or being around those who are sick. - Please return to the Emergency department if you have any worsening, new or concerning symptoms. Pt stated understanding and agreement with d/c instructions and all questions and concerns were addressed before pt was d/saturnino. Discharge Exam - Head Exam Head Exam: ATRAUMATIC, NORMAL INSPECTION, NORMOCEPHALIC - Eye Exam Eye Exam: EOMI, Normal appearance, PERRL - Respiratory Exam Respiratory Exam: NORMAL BREATHING PATTERN, UNREMARKABLE. absent: Accessory Muscle Use, Decreased Breath Sounds, Rales, Rhonchi, Wheezes, Respiratory Distress, Stridor - Cardiovascular Exam Cardiovascular Exam: RRR, +S1, +S2. absent: Gallop, Rubs - GI/Abdominal Exam GI & Abdominal Exam: Normal Bowel Sounds, Soft, Unremarkable. absent: Distended, Firm, Guarding, Tenderness - Extremities Exam Extremities exam: normal capillary refill, normal inspection, pedal pulses present - Back Exam Back exam: NORMAL INSPECTION. absent: CVA tenderness (L), CVA tenderness (R) - Neurological Exam Neurological exam: Alert, Oriented x3 - Psychiatric Exam Psychiatric exam: Normal Affect, Normal Mood - Skin Skin Exam: Dry, Intact, Normal Color, Warm Discharge Plan - Discharge Medications Prescriptions: Azithromycin [Z-Inder] 250 mg PO DAILY #6 tab RX: Ibuprofen [Motrin Tab] 600 mg PO Q6H PRN 7 Days #28 tab PRN Reason: Fever >100.4 F RX: Promethazine [Phenergan Syrup] 12.5 mg PO Q4H PRN 7 Days #42 dose PRN Reason: Cough - Follow Up Plan Condition: STABLE Disposition: HOME/ ROUTINE Instructions: Flu, Adult (DC), Community-Acquired Pneumonia, Adult (DC), Syncope (DC), Syncope (GEN) Additional Instructions: - Please follow up with primary care doctor within 3-5 days after discharge. You can see Dr Randall at [facility] neighborhood clinic. You will need repeat imaging done to make sure you right upper lobe pneumonia has resolved. This should be done with your primary care doctor. Further work up to be done with your primary care doctor. - Your white blood cell count was noted to be low upon discharge, likely due to the infection you had. Please repeat your blood count in 1-2 weeks with your primary care doctor. - Take zithromax as prescribed. - Take cough medicine promethazine as needed for cough. - Take over the counter ibuprofen as needed for fevers/body aches. - Please take the prescribed antibiotics as directed for the full duration listed on the prescription. - Ensure to wash hands well after coming in from outdoors or being around those who are sick. - Please return to the Emergency department if you have any worsening, new or concerning symptoms. Referrals: Nae Randall MD [Medical Doctor] - <Vonda Garcia R - Last Filed: 02/05/18 07:20> Provider - Provider Date of Admission: 01/29/18 14:11 Attending physician: Shabbir Mccall MD Hospital Course - Lab Results Lab Results: Micro Results 01/29/18 14:05 Blood-Venous Blood Culture - Final NO GROWTH AFTER 5 DAYS 01/29/18 14:05 Blood-Venous Gram Stain - Final TEST NOT PERFORMED 01/29/18 13:55 Blood-Venous Blood Culture - Final NO GROWTH AFTER 5 DAYS 01/29/18 13:55 Blood-Venous Gram Stain - Final TEST NOT PERFORMED 01/29/18 14:40 Naris MRSA Culture (Admit) - Final MRSA NOT DETECTED 01/28/18 22:31 Urine,Clean Catch Urine Culture - Final No Growth (<1,000 CFU/ML) Most Recent Lab Values WBC 3.7 10^3/uL (4.5-11.0) L 02/02/18 05:30 RBC 4.01 10^6/uL (3.5-6.1) 02/02/18 05:30 Hgb 11.3 g/dL (12.0-16.0) L 02/02/18 05:30 Hct 34.2 % (36.0-48.0) L 02/02/18 05:30 MCV 85.3 fl (80.0-105.0) 02/02/18 05:30 MCH 28.2 pg (25.0-35.0) 02/02/18 05:30 MCHC 33.0 g/dl (31.0-37.0) 02/02/18 05:30 RDW 12.1 % (11.5-14.5) 02/02/18 05:30 Plt Count 250 10^3/uL (120.0-450.0) 02/02/18 05:30 MPV 9.3 fl (7.0-11.0) 02/02/18 05:30 Gran % 37.2 % (50.0-68.0) L 02/02/18 05:30 Lymph % (Auto) 46.6 % (22.0-35.0) H 02/02/18 05:30 Bell % (Auto) 11.1 % (1.0-6.0) H 02/02/18 05:30 Eos % (Auto) 4.3 % (1.5-5.0) 02/02/18 05:30 Baso % (Auto) 0.8 % (0.0-3.0) 02/02/18 05:30 Gran # 1.38 (1.4-6.5) L 02/02/18 05:30 Lymph # (Auto) 1.7 (1.2-3.4) 02/02/18 05:30 Bell # (Auto) 0.4 (0.1-0.6) 02/02/18 05:30 Eos # (Auto) 0.2 (0.0-0.7) 02/02/18 05:30 Baso # (Auto) 0.03 K/mm3 (0.0-2.0) 02/02/18 05:30 ESR 35 mm/hr (0.0-20.0) H 01/29/18 13:00 pO2 33 mm/Hg (30-55) 01/28/18 23:00 VBG pH 7.38 (7.32-7.43) 01/28/18 23:00 VBG pCO2 48.0 (40-60) 01/28/18 23:00 VBG HCO3 28.4 mmol/l (21-28) H 01/28/18 23:00 VBG Total CO2 29.9 mmol.L (22-28) H 01/28/18 23:00 VBG O2 Sat (Calc) 68.1 % (40-65) H 01/28/18 23:00 VBG Base Excess 2.5 mmol/L (0.0-2.0) H 01/28/18 23:00 VBG Potassium 3.9 mmol/L (3.6-5.2) 01/28/18 23:00 Sodium 136.0 mmol/L (132-148) 01/28/18 23:00 Chloride 101.0 mmol/L (98-107) 01/28/18 23:00 Glucose 104 mg/dl (65-105) 01/28/18 23:00 Lactate 0.8 mmol/L (0.7-2.1) 01/28/18 23:00 FiO2 21.0 % 01/28/18 23:00 Sodium 141 mmol/L (132-148) 02/02/18 05:30 Potassium 4.1 mmol/L (3.6-5.0) 02/02/18 05:30 Chloride 103 mmol/L (98-107) 02/02/18 05:30 Carbon Dioxide 30 mmol/L (21-33) 02/02/18 05:30 Anion Gap 12 (10-20) 02/02/18 05:30 BUN 16 mg/dL (7-21) 02/02/18 05:30 Creatinine 0.6 mg/dl (0.7-1.2) L 02/02/18 05:30 Est GFR ( Amer) > 60 02/02/18 05:30 Est GFR (Non-Af Amer) > 60 02/02/18 05:30 Random Glucose 85 mg/dL (70-110) 02/02/18 05:30 Lactic Acid 1.7 mmol/L (0.7-2.1) 01/29/18 13:55 Calcium 9.1 mg/dL (8.4-10.5) 02/02/18 05:30 Phosphorus 3.6 mg/dL (2.5-4.5) 01/30/18 06:00 Magnesium 2.1 mg/dL (1.7-2.2) 01/30/18 06:00 Total Bilirubin 0.2 mg/dL (0.2-1.3) 02/02/18 05:30 AST 34 U/L (14-36) 02/02/18 05:30 ALT 26 U/L (7-56) 02/02/18 05:30 Alkaline Phosphatase 59 U/L (38-126) 02/02/18 05:30 Total Creatine Kinase 76 U/L (35-230) 01/29/18 13:55 C-Reactive Protein 70.20 mg/L (0.0-9.9) H 01/29/18 13:00 Total Protein 7.0 g/dL (5.8-8.3) 02/02/18 05:30 Albumin 3.6 g/dL (3.0-4.8) 02/02/18 05:30 Globulin 3.4 gm/dL 02/02/18 05:30 Albumin/Globulin Ratio 1.0 (1.1-1.8) L 02/02/18 05:30 Procalcitonin < 0.05 NG/ML (0.19-0.49) L 01/29/18 09:40 Venous Blood Potassium 3.9 mmol/L (3.6-5.2) 01/28/18 23:00 Urine Color Yellow (YELLOW) 01/28/18 23:02 Urine Appearance Sl cloudy (CLEAR) 01/28/18 23:02 Urine pH 6.5 (4.7-8.0) 01/28/18 23:02 Ur Specific Tolar 1.015 (1.005-1.035) 01/28/18 23:02 Urine Protein Trace mg/dL (<30 mg/dL) H 01/28/18 23:02 Urine Glucose (UA) Negative mg/dL (NEGATIVE) 01/28/18 23:02 Urine Ketones Negative mg/dL (NEGATIVE) 01/28/18 23:02 Urine Blood Large (NEGATIVE) H 01/28/18 23:02 Urine Nitrate Negative (NEGATIVE) 01/28/18 23:02 Urine Bilirubin Negative (NEGATIVE) 01/28/18 23:02 Urine Urobilinogen 0.2 E.U./dL (<1 E.U./dL) 01/28/18 23:02 Ur Leukocyte Esterase Small Aguilar/uL (NEGATIVE) H 01/28/18 23:02 Urine RBC 2 - 5 /hpf (0-2) 01/28/18 23:02 Urine WBC 5 - 10 /hpf (0-6) 01/28/18 23:02 Ur Epithelial Cells 6 - 8 /hpf (0-5) 01/28/18 23:02 Amorphous Sediment Few 01/28/18 23:02 Urine Bacteria Small (NEG) 01/28/18 23:02 ALEXYS Screen Negative (Negative) 01/29/18 14:15 HSV IgM Ab Screen Negative (Negative) 01/29/18 14:15 HSV I IgM Titer 01/29/18 14:15 HSV II IgM Titer 01/29/18 14:15 HHV-6 IgM Ab Scrn Negative (Negative) 01/29/18 14:15 HIV-1 Antibody TEST NOT PERFORMED 01/29/18 09:40 HIV-2 Antibody TEST NOT PERFORMED 01/29/18 09:40 HIV 1&2 Ag/Ab, 4th Gen Nonreactive (Nonreactive) 01/29/18 09:40 Influenza Typ A,B (EIA) Negative for flu a/b (NEGATIVE) 01/28/18 21:15 Influenza Type A Ab 1:32 titer (<1:8) H 01/29/18 06:55 Influenza Type B Ab 1:16 titer (<1:8) H 01/29/18 06:55 Mycoplasma pneumon IgG <=0.90 (<=0.90) 01/29/18 09:40 Mycoplasma pneumon IgM 440 U/mL (<770) 01/29/18 09:40 Ur Strep pneumoniae Ag Not detected (Not Detected) 01/29/18 11:28 Attending/Attestation - Attestation I have personally seen and examined this patient.: Yes I have fully participated in the care of the patient.: Yes I have reviewed all pertinent clinical information, including history, physical exam and plan: Yes Notes (Text): Patient seen and examined by me with resident at :25PM on 02/02/18. Case including discharge plan discussed with resident. Agree with above with following additions/corrections. Patient is 22-year-old with no significant past medical history that presented to the emergency room with fever, cough, lightheadedness, syncopal episode. Please see H&P for full details. Patient was admitted with syncope, viral upper respiratory infection, UTI, shoulder and neck pain. Head CT on 01/28/2018. It showed no acute intracranial findings. Chest x-ray on 01/28/2018 per cardiology showed patchy infiltrate and right upper lobe consistent with pneumonia, also peribronchial thickening in this region. Chest CT on 01/31/2018 per radiology showed right upper lobe pneumonia. ID was consulted. Patient was placed on Zithromax. Lactic acid was 1.7. Patient had no leukocytosis. Pro-calcitonin was less than 0.05. Patient was febrile. Influenza was negative however patient was placed on Tamiflu. Patient also complained of generalized weakness and dizziness which improved. Blood and urine culture showed no growth. Syncope was likely secondary to hypovolemia, poor oral intake, and high fevers. Patient was continued on IV fluids. Patient was continued on Rocephin for UTI. Patient also complained of shoulder and neck pain. Likely musculoskeletal in nature. Left shoulder x-ray on 01/29/2018 per radiologist showed upper limits of normal with left before meals joint without definite separation appreciated, exam otherwise unremarkable. Left shoulder MRI on 01/30/2018 per radiology showed negative study. Patient was feeling much better. Patient was afebrile and completed Tamiflu. Patient was discharged home on Zithromax as per infectious disease doctor. On day of discharge, patient stated she was feeling much better. Cough and chest tightness improved. Left shoulder pain much improved. Tolerating diet. No chest pain or palpitations. No nausea, vomiting, or abdominal pain. No headaches or dizziness. No lightheadedness. No fevers or chills. No dysuria. No diarrhea or constipation. Physical exam: General: Awake and alert sitting up in chair in bed in no acute distress HEENT: Normocephalic atraumatic. Extraocular muscles intact. Pupils equal and reactive. No scleral icterus. Oropharynx is pink and moist. No pharyngeal erythema or exudate appreciated. Neck is supple. Cardiovascular: Regular rhythm. Normal S1 and S2. No murmurs, rubs, or gallops appreciated Pulmonary: Normal respiratory effort. No rhonchi, rales or wheezing appreciated. Gastrointestinal: Soft, nondistended. Nontender. Positive bowel sounds all 4 quadrants, no guarding. Musculoskeletal: Moves all extremities, no calf tenderness. No CVA tenderness. No edema appreciated Central nervous system: AAOx3. CN2-12 grossly intact. 5/5 muscle strength all extremities. Dermatologic: Skin warm and dry. Please see chart for full details. Follow up instructions: Patient to follow up with primary care doctor within 3- 5 days. Patient will need repeat imaging done to make sure right upper lobe pneumonia has resolved. He should have repeat blood work done to monitor CBC. Complete antibiotics as prescribed. All instructions explained to patient in detail. Patient both understands and agrees to all instructions. Written instructions also given. Time spent in discharging the patient including chart review, medication reconciliation, discussion with the patient, medical doctor, consultants, and nursing staff was 40 minutes.
== END 2018-02-02 13:50 | disposition home or self-care (01) | DRG 871 ==
LOC: ED 21:05 → ERH 01-29 01:11 → 3RSO 01-29 03:21 → OBSVTOIN 01-29 14:11
PROVIDERS: ADMIT Internal Medicine; ATTEND Internal Medicine
DX: A41.89 Other specified sepsis (principal); J11.00 Influenza due to unidentified influenza virus with unspecified type of pneumonia; N39.0 Urinary tract infection, site not specified; R55 Syncope and collapse; E86.1 Hypovolemia; M25.512 Pain in left shoulder